=== PATIENT | female | born 1990 | race Two or more races ===

== ENCOUNTER 2016-11-05 14:05 | Emergency (ER) | payer SELFPAY ==
[2016-11-05] MEDS ORDERED: NORMAL SALINE 1000 ML 1,000 ML IV PRN (14:24)
[2016-11-05 14:47] LABS: ABSOLUTE BASOPHILS # (AUTO) 0.1 10^3/uL (0.0-0.2); ABSOLUTE EOSINOPHILS # (AUTO) 0.1 10^3/uL (0.0-0.6); ABSOLUTE LYMPHOCYTES (AUTO) 1.6 10^3/uL (0.5-4.7); ABSOLUTE MONOCYTES (AUTO) 0.6 10^3/uL (0.1-1.4); ABSOLUTE NEUT (AUTO) 9.1 10^3/uL (1.7-8.2); BASOPHILS % (AUTO) 0.6 % (0-2); EOSINOPHILS % (AUTO) 0.8 % (0-6); HEMATOCRIT 35.9 % (36.0-47.0); HEMOGLOBIN 11.2 g/dL (12.0-15.5); HGB HCT DIFFERENCE -2.3; MEAN CORPUSCULAR HEMOGLOBIN 25.9 pg (27.0-33.4); MEAN CORPUSCULAR HGB CONC 31.1 g/dL (32.0-36.0); MEAN CORPUSCULAR VOLUME 83 fl (80-97); MONOCYTES % (AUTO) 5.4 % (3-13); RED BLOOD COUNT 4.32 10^6/uL (3.72-5.28); RED CELL DISTRIBUTION WIDTH 14.8 % (11.5-14.0); SEGMENTED NEUTROPHILS % (AUTO) 79.2 % (42-78); WHITE BLOOD COUNT 11.5 10^3/uL (4.0-10.5)
[2016-11-05 14:52] LABS: ALANINE AMINOTRANSFERASE 19 U/L (9-52); ALBUMIN 3.8 g/dL (3.5-5.0); ALKALINE PHOSPHATASE 89 U/L (38-126); ANION GAP 19 (5-19); ASPARTATE AMINO TRANSFERASE 28 U/L (14-36); BILIRUBIN,TOTAL 0.5 mg/dL (0.2-1.3); BLOOD UREA NITROGEN 17 mg/dL (7-20); CALCIUM 8.8 mg/dL (8.4-10.2); CARBON DIOXIDE 17 mmol/L (22-30); CHLORIDE 103 mmol/L (98-107); CREATININE RESULT 0.78 mg/dL (0.52-1.25); GLUCOSE 230 mg/dL (75-110); POTASSIUM 3.9 mmol/L (3.6-5.0); SODIUM 139.1 mmol/L (137-145); TOTAL PROTEIN 6.7 g/dL (6.3-8.2)
--- NOTE | 2016-11-05 15:05 | ER Document Report ---
ED General - General Chief Complaint: High Blood Sugar Stated Complaint: BLOOD SUGAR PROBLEM Time seen by provider: 14:00 Mode of Arrival: Medic Information source: Patient Notes: 26-year-old female who states she felt very weak as if she would pass out shortly prior to arrival. Patient reports history of diabetes and says she takes insulin twice a day but doesn't routinely check her blood sugars. She says that when she starts to develop polyuria she may give herself some extra insulin and she feels as if her blood sugar might be low she may eat or drink something extra. The patient says that she felt nauseated this morning and weak and drank a Sprite some point this morning she also found her blood sugar to be too high to reading the rest of extra insulin but she doesn't recall this came before or after drinking a Sprite. Patient reports receiving 1 L of IV fluids from EMS personnel in route. He says she feels better now but still somewhat weak. She denies recent fever, chills, cough, vomiting, diarrhea, chest pain, abdominal pain, back pain, dysuria, earache, sore throat, headache, or other symptoms. Patient reports that she has previously seen Dr. Martin of endocrinology but had to stop after she lost her insurance. Physical Exam: General: Alert, appears well. HEENT: Normocephalic. Atraumatic. PERRLA. Extraocular movements intact. Oropharynx clear. Tympanic membranes and canals clear Neck: Supple. Non-tender. No JVD Respiratory: No respiratory distress. Clear and equal breath sounds bilaterally. Cardiovascular: Regular rate and rhythm. Abdominal: Normal Inspection. Soft, non-tender. No distension. Normal Bowel Sounds. Back: Non-tender. No deformity or step off. Extremities: Moves all four extremities. Upper extremities: Normal inspection. Non-tender. Normal color. Normal ROM. Normal temperature. Lower extremities: Normal inspection. Non-tender. No edema. Normal color. Normal ROM. Normal temperature. 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 Normal Mood. Skin: Warm. Dry. Normal color. TRAVEL OUTSIDE OF THE [place] IN LAST 30 DAYS: No - Related Data Allergies/Adverse Reactions: No Known Allergies Allergy (Unverified 11/14/12 11:44) Past Medical History - Social History Smoking Status: Former Smoker Family History: DM Pulmonary Medical History: Denies: Hx Tuberculosis Endocrine Medical History: Reports: Hx Diabetes Mellitus Type 1 Past Surgical History: Denies: Hx Pacemaker - Immunizations Immunizations up to date: No Hx Diphtheria, Pertussis, Tetanus Vaccination: No Review of Systems - Review of Systems Constitutional: denies: Chills, Fever EENT: denies: Ear pain, Throat pain Cardiovascular: denies: Chest pain Respiratory: denies: Cough, Short of breath Gastrointestinal: denies: Abdominal pain Genitourinary: denies: Burning, Dysuria Female Genitourinary: Last menstrual period - Now Musculoskeletal: denies: Back pain Skin: denies: Rash Hematologic/Lymphatic: denies: Swollen glands Neurological/Psychological: denies: Weakness, Numbness Physical Exam - Vital signs Vitals: Temp BP 97.8 F 114/66 11/05/16 14:15 11/05/16 14:15 Course - Re-evaluation Re-evalutation: 11/05/16 15:41 Patient has ambulated in department without difficulty she's remained hemodynamically stable and asymptomatic here. Laboratory workup does show hyperglycemia but she is not acidotic. 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 Martin that I recognize insurance issues have been a problem for her. 11/05/16 15:55 Patient does have an UTI will be placed on Keflex 500 4 times a day for 10 days over this will also improve management of her blood sugars - Vital Signs Vital signs: Temp Pulse Resp BP Pulse Ox 97.8 F 114/66 11/05/16 14:15 11/05/16 14:15 - Laboratory Result Diagrams: 11/05/16 14:15 11/05/16 14:15 Laboratory results interpreted by me: 11/05/16 11/05/16 11/05/16 14:14 14:15 14:15 WBC 11.5 H Hgb 11.2 L Hct 35.9 L MCH 25.9 L MCHC 31.1 L RDW 14.8 H Seg Neutrophils % 79.2 H Absolute Neutrophils 9.1 H Carbonic Acid ABG pH ABG pCO2 ABG pO2 ABG HCO3 ABG Total CO2 ABG O2 Saturation Carbon Dioxide 17 L Glucose 230 H POC Glucose 243 H Lipase 22.0 L Urine Protein Urine Glucose (UA) Urine Ketones Urine Blood Ur Leukocyte Esterase 11/05/16 11/05/16 15:01 15:22 WBC Hgb Hct MCH MCHC RDW Seg Neutrophils % Absolute Neutrophils Carbonic Acid 0.79 L ABG pH 7.50 H ABG pCO2 26.1 L ABG pO2 130.0 H ABG HCO3 19.9 L ABG Total CO2 20.7 L ABG O2 Saturation 98.9 H Carbon Dioxide Glucose POC Glucose Lipase Urine Protein 100 H Urine Glucose (UA) >=500 H Urine Ketones TRACE H Urine Blood SMALL H Ur Leukocyte Esterase MODERATE H - Diagnostic Test Radiology reviewed: Image reviewed, Reports reviewed Discharge - Discharge Clinical Impression: Hyperglycemia due to type 1 diabetes mellitus UTI (urinary tract infection) Qualifiers: Urinary tract infection type: acute cystitis Hematuria presence: without hematuria Qualified Code(s): N30.00 - Acute cystitis without hematuria Condition: Stable Disposition: HOME, SELF-CARE Instructions: Urinary Tract Infection ([facility]) Additional Instructions: Diabetes You have an abnormally high blood sugar, suspicious for diabetes. Not all high blood sugar requires long-term treatment. High blood sugar can be due to medications, , or the stress of illness. (These cases are "borderline diabetes.") If the doctor feels your high blood sugar might get better with time, you may not require treatment now. You will be scheduled for further evaluation. It's very important that you follow through. Uncontrolled high blood sugar leads to early heart disease , strokes, nerve damage, eye damage, and kidney damage. All diabetics should follow a diet designed to control the blood sugar. Overweight diabetics should exercise regularly and lose weight. If this is not sufficient to control the blood sugar, pills or insulin shots are necessary. Younger people who develop diabetes almost always require insulin daily. Home testing of blood sugars or urine sugar is required. Diabetic teaching is available to help you figure insulin doses and monitor the blood sugar. Call the physician if there is faintness, excess sleepiness, or very rapid breathing. If hypoglycemia (LOW blood sugar) develops, symptoms are shakiness, weakness, sweating, and confusion. In this case, you should eat or drink something with sugar at once. Prescriptions: Cephalexin Monohydrate [Keflex 500 mg Capsule] 500 mg PO QID #40 capsule Referrals: JHONNY LUCAS MD [ACTIVE STAFF] - Follow up in 3-5 days
[2016-11-05 15:18] LABS: ARTERIAL BLOOD BASE EXCESS -1.9 mmol/L; ARTERIAL BLOOD O2 SATURATION 98.9 % (94-98)
[2016-11-05 15:38] LABS: APPEARANCE,URINE SLIGHTLY-CLOUDY; BILIRUBIN,URINE NEGATIVE (NEGATIVE); GLUCOSE, URINE >=500 mg/dL (NEGATIVE); KETONES,URINE TRACE mg/dL (NEGATIVE); LEUKOCYTE ESTERASE,URINE MODERATE (NEGATIVE); NITRITE,URINE NEGATIVE (NEGATIVE); PROTEIN,URINE 100 mg/dL (NEGATIVE); URINE SPECIFIC GRAVITY 1.016; UROBILINOGEN,URINE NEGATIVE mg/dL (<2.0)
[2016-11-05 16:38] VITALS: BP 113/62
== END 2016-11-05 16:38 | disposition home or self-care (01) ==
LOC: ER 14:05
DX: E10.65 Type 1 diabetes mellitus with hyperglycemia (principal); N30.00 Acute cystitis without hematuria
CPT/HCPCS: 99284; 96360; 36415; 87086; 82962; 82803; 83690; 85025; 81025; 87088; 80053; 81001; 71010; 36600; J7030

== ENCOUNTER 2017-05-23 10:55 | Emergency (ER) | payer SELFPAY ==
[2017-05-23] MEDS ORDERED: METOCLOPRAMIDE HCL 10 MG TABLET PO ONE (11:20)
[2017-05-23] MEDS ORDERED: ACETAMINOPHEN 325 MG TABLET PO ONE (11:21)
--- NOTE | 2017-05-23 11:22 | ER Document Report ---
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 She does report a headache. She denies fever, chills or abdominal pain. She denies diarrhea. TRAVEL OUTSIDE OF THE [place] IN LAST 30 DAYS: No - Related Data Allergies/Adverse Reactions: No Known Allergies Allergy (Verified 05/23/17 11:05) Past Medical History - Social History Chew tobacco use (# tins/day): No Frequency of alcohol use: Rare Drug Abuse: None Pulmonary Medical History: Denies: Hx Tuberculosis Endocrine Medical History: Reports: Hx Diabetes Mellitus Type 1 Renal/ Medical History: Denies: Hx Peritoneal Dialysis Past Surgical History: Denies: Hx Pacemaker - Immunizations Immunizations up to date: No Hx Diphtheria, Pertussis, Tetanus Vaccination: No Physical Exam - Vital signs Vitals: Temp Pulse Resp BP Pulse Ox 98.6 F 92 16 130/74 H 100 05/23/17 11:04 05/23/17 11:04 05/23/17 11:04 05/23/17 11:04 05/23/17 11:04 Course - Vital Signs Vital signs: Temp Pulse Resp BP Pulse Ox 98.6 F 92 14 130/74 H 100 05/23/17 11:04 05/23/17 11:04 05/23/17 11:17 05/23/17 11:04 05/23/17 11:04
[2017-05-23 11:47] LABS: ABSOLUTE BASOPHILS # (AUTO) 0.1 10^3/uL (0.0-0.2); ABSOLUTE EOSINOPHILS # (AUTO) 0.2 10^3/uL (0.0-0.6); ABSOLUTE LYMPHOCYTES (AUTO) 1.3 10^3/uL (0.5-4.7); ABSOLUTE MONOCYTES (AUTO) 0.4 10^3/uL (0.1-1.4); BASOPHILS % (AUTO) 0.8 % (0-2); EOSINOPHILS % (AUTO) 2.5 % (0-6); HEMATOCRIT 37.4 % (36.0-47.0); HEMOGLOBIN 12.4 g/dL (12.0-15.5); HGB HCT DIFFERENCE -0.2; LYMPHOCYTES % (AUTO) 18.9 % (13-45); MEAN CORPUSCULAR HEMOGLOBIN 26.1 pg (27.0-33.4); MEAN CORPUSCULAR HGB CONC 33.2 g/dL (32.0-36.0); MEAN CORPUSCULAR VOLUME 79 fl (80-97); MONOCYTES % (AUTO) 5.7 % (3-13); RED BLOOD COUNT 4.75 10^6/uL (3.72-5.28); RED CELL DISTRIBUTION WIDTH 14.1 % (11.5-14.0); SEGMENTED NEUTROPHILS % (AUTO) 72.1 % (42-78); WHITE BLOOD COUNT 6.9 10^3/uL (4.0-10.5)
[2017-05-23 12:00] LABS: ALANINE AMINOTRANSFERASE 21 U/L (9-52); ALBUMIN 4.2 g/dL (3.5-5.0); ALKALINE PHOSPHATASE 76 U/L (38-126); ANION GAP 10 (5-19); ASPARTATE AMINO TRANSFERASE 20 U/L (14-36); BILIRUBIN,DIRECT 0.2 mg/dL (0.0-0.4); BILIRUBIN,TOTAL 0.4 mg/dL (0.2-1.3); BLOOD UREA NITROGEN 17 mg/dL (7-20); CALCIUM 8.9 mg/dL (8.4-10.2); CARBON DIOXIDE 26 mmol/L (22-30); CHLORIDE 105 mmol/L (98-107); CREATININE RESULT 0.79 mg/dL (0.52-1.25); GLUCOSE 181 mg/dL (75-110); POTASSIUM 3.8 mmol/L (3.6-5.0); SODIUM 140.8 mmol/L (137-145); TOTAL PROTEIN 7.6 g/dL (6.3-8.2)
[2017-05-23 12:15] LABS: APPEARANCE,URINE SLIGHTLY-CLOUDY; BILIRUBIN,URINE NEGATIVE (NEGATIVE); GLUCOSE, URINE 500 mg/dL (NEGATIVE); KETONES,URINE NEGATIVE (NEGATIVE)
[2017-05-23 12:16] LABS: BACTERIA,URINE TRACE /HPF; LEUKOCYTE ESTERASE,URINE NEGATIVE (NEGATIVE); NITRITE,URINE NEGATIVE (NEGATIVE); PROTEIN,URINE 100 mg/dL (NEGATIVE); RBC,URINE TOO NUMEROUS TO CNT /HPF; URINE SPECIFIC GRAVITY 1.035; UROBILINOGEN,URINE NEGATIVE mg/dL (<2.0)
[2017-05-23 12:35] VITALS: BP 111/59
--- NOTE | 2017-05-23 12:35 | ER Document Report ---
ED General - General Chief Complaint: Nausea/Vomiting Stated Complaint: NAUSEA/VOMITING Time Seen by Provider: 05/23/17 11:19 Mode of Arrival: Ambulatory TRAVEL OUTSIDE OF THE [place] IN LAST 30 DAYS: No - HPI Patient complains to provider of: Nausea vomiting Notes: Patient coming in with 3 day history of nausea vomiting. Patient states recently diagnosed diabetes has been compliant with her medications. Patient is unaware of her status. Patient denies any recent travel denies any sick contacts denies any trauma. Denies fevers chills diarrhea. - Related Data Allergies/Adverse Reactions: No Known Allergies Allergy (Verified 05/23/17 11:05) Past Medical History - General Information source: Patient - Social History Smoking Status: Current Every Day Smoker Chew tobacco use (# tins/day): No Frequency of alcohol use: Rare Drug Abuse: None Family History: DM Pulmonary Medical History: Denies: Hx Tuberculosis Endocrine Medical History: Reports: Hx Diabetes Mellitus Type 1 Renal/ Medical History: Denies: Hx Peritoneal Dialysis Past Surgical History: Denies: Hx Pacemaker - Immunizations Immunizations up to date: No Hx Diphtheria, Pertussis, Tetanus Vaccination: No Review of Systems - Review of Systems Constitutional: No symptoms reported EENT: No symptoms reported Cardiovascular: No symptoms reported Respiratory: No symptoms reported Gastrointestinal: Nausea, Vomiting Genitourinary: No symptoms reported Female Genitourinary: No symptoms reported Musculoskeletal: No symptoms reported Skin: No symptoms reported Hematologic/Lymphatic: No symptoms reported Neurological/Psychological: No symptoms reported -: Yes All other systems reviewed and negative Physical Exam - Vital signs Vitals: Temp Pulse Resp BP Pulse Ox 98.6 F 92 16 130/74 H 100 05/23/17 11:04 05/23/17 11:04 05/23/17 11:04 05/23/17 11:04 05/23/17 11:04 Interpretation: Normal - General General appearance: Appears well, Alert - HEENT Head: Normocephalic, Atraumatic Eyes: Normal Pupils: PERRL - Respiratory Respiratory status: No respiratory distress Chest status: Nontender Breath sounds: Normal Chest palpation: Normal - Cardiovascular Rhythm: Regular Heart sounds: Normal auscultation Murmur: No - Abdominal Inspection: Normal Distension: No distension Bowel sounds: Normal Tenderness: Nontender Organomegaly: No organomegaly - Back Back: Normal, Nontender - Extremities General upper extremity: Normal inspection, Nontender, Normal color, Normal ROM , Normal temperature General lower extremity: Normal inspection, Nontender, Normal color, Normal ROM , Normal temperature, Normal weight bearing. No: Marvin's sign - Neurological Neuro grossly intact: Yes Cognition: Normal Orientation: AAOx4 [place] Coma Scale Eye Opening: Spontaneous [place] Coma Scale Verbal: Oriented [place] Coma Scale Motor: Obeys Commands [place] Coma Scale Total: 15 Speech: Normal Motor strength normal: LUE, RUE, LLE, RLE Sensory: Normal - Psychological Associated symptoms: Normal affect, Normal mood - Skin Skin Temperature: Warm Skin Moisture: Dry Skin Color: Normal Course - Re-evaluation Re-evalutation: 05/23/17 15:38 The patient presents with nausea vomiting without signs of peritonitis or other life-threatening or serious etiology. The patient appears stable for discharge and has been instructed to return immediately if the symptoms worsen in any way , or in 8-12hr if not improved for re-evaluation. The patient has been instructed to return if the symptoms worsen or change in any way. Better with Reglan will discharge - Vital Signs Vital signs: Temp Pulse Resp BP Pulse Ox 98.3 F 79 17 111/59 L 95 05/23/17 12:33 05/23/17 12:33 05/23/17 12:33 05/23/17 12:33 05/23/17 12:33 - Laboratory Result Diagrams: 05/23/17 11:25 05/23/17 11:25 Laboratory results interpreted by me: 05/23/17 05/23/17 05/23/17 11:25 11:25 11:25 MCV 79 L MCH 26.1 L RDW 14.1 H Glucose 181 H Urine Protein 100 H Urine Glucose (UA) 500 H Urine Blood LARGE H Discharge - Discharge Clinical Impression: Nausea & vomiting Qualifiers: Vomiting type: unspecified Vomiting Intractability: unspecified Qualified Code( s): R11.2 - Nausea with vomiting, unspecified Condition: Good Disposition: HOME, SELF-CARE Instructions: Vomiting ([facility]), Reglan ([facility]) Additional Instructions: Please follow-up with your physician. Return to the ER symptoms worsen. Take medication as prescribed. Prescriptions: Metoclopramide HCl [Reglan] 5 mg PO Q6 #30 tablet Forms: Return to Work
== END 2017-05-23 12:38 | disposition home or self-care (01) ==
LOC: ER 10:55
DX: R11.2 Nausea with vomiting, unspecified (principal); E10.9 Type 1 diabetes mellitus without complications; F17.200 Nicotine dependence, unspecified, uncomplicated
CPT/HCPCS: 36415; 80053; 81001; 84702; 85025; 99283

== ENCOUNTER 2017-06-01 16:37 | Emergency (ER) | payer SELFPAY ==
[2017-06-01] MEDS ORDERED: ONDANSETRON HCL INJ/PF 4 MG/2 ML SDV IV ONE (17:15)
[2017-06-01] MEDS ORDERED: NORMAL SALINE 1000 ML 1,000 ML IV ONE ×2 (17:15→18:32)
--- NOTE | 2017-06-01 17:16 | ER Document Report ---
HPI - HPI Patient complains to provider of: Nausea, vomiting diarrhea Onset: Yesterday Onset/Duration: Gradual Quality of pain: Achy Pain Level: 2 Context: Patient presents complaining of nausea, vomiting and diarrhea that started yesterday. Patient states she vomited about 6 times today and had diarrhea 4. Patient states that her ribs hurt from vomiting. Patient denies any fever or urinary symptoms. Patient does complain of some headache pain. Associated Symptoms: Diarrhea, Headache, Nausea, Vomiting. denies: Chills, Nonproductive cough, Productive cough, Fever Exacerbated by: Denies Relieved by: Denies Similar symptoms previously: No Recently seen / treated by doctor: No - ROS ROS below otherwise negative: Yes Systems Reviewed and Negative: Yes All other systems reviewed and negative - CONSTITUTIONAL Constitutional: DENIES: Fever - NEURO Neurology: REPORTS: Headache. DENIES: Weakness - RESPIRATORY Respiratory: DENIES: Coughing - GASTROINTESTINAL Gastrointestinal: REPORTS: Nausea, Patient vomiting, Diarrhea. DENIES: Abdominal Pain, Black / Bloody Stools - URINARY Urinary: DENIES: Dysuria, Urgency - REPRODUCTIVE LMP: 05/26/17 Reproductive: DENIES: : - MUSCULOSKELETAL Musculoskeletal: DENIES: Back Pain - DERM Skin Color: Normal Skin Problems: None Past Medical History - General Information source: Patient - Social History Smoking Status: Current Every Day Smoker Frequency of alcohol use: None Drug Abuse: None Occupation: [employer] Family History: DM - Medical History Notes: Reviewed patient's medication list Pulmonary Medical History: Denies: Hx Tuberculosis Endocrine Medical History: Reports: Hx Diabetes Mellitus Type 1 Renal/ Medical History: Denies: Hx Peritoneal Dialysis Surgical Hx: Negative - Immunizations Immunizations up to date: No Hx Diphtheria, Pertussis, Tetanus Vaccination: No Vertical Provider Document - CONSTITUTIONAL Agree With Documented VS: Yes Exam Limitations: No Limitations General Appearance: WD/WN, No Apparent Distress - INFECTION CONTROL TRAVEL OUTSIDE OF THE [place] IN LAST 30 DAYS: No - HEENT HEENT: Atraumatic. negative: Pharyngeal Exudate, Pharyngeal Tenderness, Pharyngeal Erythema Notes: dry cracked lips - NECK Neck: Normal Inspection, Supple. negative: Lymphadenopathy-Left, Lymphadenopathy-Right - RESPIRATORY Respiratory: Breath Sounds Normal, No Respiratory Distress, Chest Non-Tender O2 Sat by Pulse Oximetry: 98 - CARDIOVASCULAR Cardiovascular: Regular Rate, Regular Rhythm, No Murmur - GI/ABDOMEN Gastrointestinal: Abdomen Soft, Abdomen Non-Tender - BACK Back: Normal Inspection. negative: CVA Tenderness-Right, CVA Tenderness-Left - MUSCULOSKELETAL/EXTREMETIES Musculoskeletal/Extremeties: MAEW, FROM, Non-Tender - NEURO Level of Consciousness: Awake, Alert, Appropriate Motor/Sensory: No Motor Deficit - DERM Integumentary: Warm, Dry Course - Re-evaluation Re-evalutation: 06/01/17 18:40 Patient denies any nausea or vomiting during ER stay. Patient denies any abdominal tenderness at this time. 06/01/17 19:40 Bedside report and handout given to Donna LONG - Vital Signs Vital signs: Temp Pulse Resp BP Pulse Ox 98.7 F 89 16 119/69 98 06/01/17 16:45 06/01/17 16:45 06/01/17 16:45 06/01/17 16:45 06/01/17 16:45 - Laboratory Result Diagrams: 06/01/17 17:25 06/01/17 17:25 Laboratory results interpreted by me: 06/01/17 18:40 Labs- Entire Visit 06/01/17 06/01/17 06/01/17 17:25 17:25 17:25 WBC 5.6 RBC 5.15 Hgb 13.1 Hct 40.5 MCV 79 L MCH 25.5 L MCHC 32.5 RDW 14.7 H Plt Count 248 Seg Neutrophils % 70.0 Lymphocytes % 19.6 Monocytes % 8.8 Eosinophils % 1.2 Basophils % 0.4 Absolute Neutrophils 3.9 Absolute Lymphocytes 1.1 Absolute Monocytes 0.5 Absolute Eosinophils 0.1 Absolute Basophils 0.0 Sodium 137.5 Potassium 3.8 Chloride 101 Carbon Dioxide 24 Anion Gap 13 BUN 20 Creatinine 0.68 Est GFR ( Amer) > 60 Est GFR (Non-Af Amer) > 60 Glucose 127 H Calcium 9.4 Total Bilirubin 0.6 Direct Bilirubin 0.3 Indirect Bilirubin Not Reportable Neonat Total Bilirubin Not Reportable AST 21 ALT 26 Alkaline Phosphatase 75 Total Protein 7.5 Albumin 4.1 Lipase 21.4 L Serum HCG, Qual NEGATIVE Urine Color Urine Appearance Urine pH Ur Specific [place] Urine Protein Urine Glucose (UA) Urine Ketones Urine Blood Urine Nitrite Urine Bilirubin Urine Urobilinogen Ur Leukocyte Esterase Urine WBC (Auto) Urine RBC (Auto) Squamous Epi Cells Auto Urine Mucus (Auto) Urine Ascorbic Acid 06/01/17 18:14 WBC RBC Hgb Hct MCV MCH MCHC RDW Plt Count Seg Neutrophils % Lymphocytes % Monocytes % Eosinophils % Basophils % Absolute Neutrophils Absolute Lymphocytes Absolute Monocytes Absolute Eosinophils Absolute Basophils Sodium Potassium Chloride Carbon Dioxide Anion Gap BUN Creatinine Est GFR ( Amer) Est GFR (Non-Af Amer) Glucose Calcium Total Bilirubin Direct Bilirubin Indirect Bilirubin Neonat Total Bilirubin AST ALT Alkaline Phosphatase Total Protein Albumin Lipase Serum HCG, Qual Urine Color DARK YELLOW Urine Appearance SLIGHTLY-CLOUDY Urine pH 5.0 Ur Specific [place] 1.039 Urine Protein 100 H Urine Glucose (UA) NEGATIVE Urine Ketones 80 H Urine Blood NEGATIVE Urine Nitrite NEGATIVE Urine Bilirubin NEGATIVE Urine Urobilinogen NEGATIVE Ur Leukocyte Esterase TRACE H Urine WBC (Auto) 9 Urine RBC (Auto) 1 Squamous Epi Cells Auto 10 Urine Mucus (Auto) MANY Urine Ascorbic Acid 20 H Discharge - Discharge Clinical Impression: Nausea vomiting and diarrhea, Dehydration Condition: Stable Disposition: HOME, SELF-CARE Additional Instructions: Return immediately for any new or worsening symptoms Followup with your primary care provider, call tomorrow to make a followup appointment Increase oral fluids VOMITING: Vomiting (or nausea without vomiting) can be caused by many other different problems. It can mean that something's wrong with the stomach, such as ulcers or inflammation or the intestinal tract, such as appendicitis. But it can also be a symptom of a problem that has nothing to do with the stomach or intestines. Vomiting is common with severe headaches, earaches, tonsillitis, and kidney infections, etc. We see it with pneumonia or heart attacks. Drugs can cause nausea and vomiting. Many abdominal problems cause vomiting; for example, gallstones, kidney stones, pancreatitis, and intestinal obstruction ( blocked bowels). In most cases, curing the vomiting depends on fixing the problem that caused it. For temporary relief, we may use an anti-nausea medicine. For home use, we can prescribe suppositories, chewable pills, pills that dissolve in the mouth, or liquid anti-nausea drugs. If the vomiting seems to be caused by a problem in the stomach, acid-suppressing drugs may be prescribed as well. It's important to avoid dehydration. Sip small amounts of clear liquids ( soft drinks, tea, broth, etc) . Try to take fluids frequently even if you are vomiting to prevent dehydration. Take increasing amounts of fluid and when liquids are being consumed successfully, advance to small amounts of bland food (toast, soups, mashed potatoes, etc.) until you are able to resume a regular diet. Avoid aspirin, tobacco, and alcohol. If the vomiting worsens, if the problem that's making you vomit worsens, or if there's evidence of bleeding in the stomach (such as black, tarry stool, or bloody or black vomit), you should return immediately. Also, return if abdominal pain worsens or becomes localized to one area or you develop high fever. Call your doctor if you aren't improved in 24 hours. DIARRHEA, NON-SPECIFIC: Diarrhea means frequent, watery stools. There are many causes. Any problem that keeps the intestinal tract from absorbing water from the stool can lead to diarrhea. A sudden new diarrhea problem is usually caused by a virus, food sensitivity, toxic bacteria, or drugs. In this case, we expect the problem to go away soon. Testing is done only if you seem seriously ill from the diarrhea. If you have chronic diarrhea, or diarrhea that keeps coming back, we need to find out why. Chronic diarrhea can be due to inflammation of the bowels such as Crohn's disease or ulcerative colitis, food sensitivity such as intolerance to lactose or wheat protein, irritable bowel syndrome, and other problems. If your diarrhea is a significant problem but it's not clear why you have it, we' ll refer you to a specialist for further testing. During an episode of diarrhea, drink small amounts (two to six ounces) of clear liquids (soft drinks, sport drinks, herb teas, broth, etc). Take fluids frequently to prevent dehydration. It's usually not a problem to take mild anti- diarrhea medication such as Kaopectate or Pepto-Bismol. As the diarrhea eases, advance to small amounts of bland food (mashed potato, toast) for 24 hours. Call the physician if blood appears in your vomit or stool, if vomiting lasts longer than 24 hours, if the abdominal pain worsens or becomes localized to one area, if you develop high fever, or if you become lightheaded and weak. VIRAL SYNDROME: The physician has diagnosed a viral infection. Viruses not only cause "colds," but can cause many different symptoms including generalized aching, fever, headache, cough, diarrhea, nausea, vomiting, and fatigue. The treatment, for the most part, is simply relief of symptoms. This means that antibiotics are usually not given. Rest, fluids, pain medications and, occasionally, medication for the specific symptoms that are most bothersome will be prescribed. Use good handwashing to avoid passing the virus to others. Shared toys should be cleaned with disinfectant. Clean the toilets, sinks, and counter surfaces in bathrooms. Launder clothing in hot water. Contact the physician if you develop any new or unusual symptoms such as severe headache, stiff neck, high fever, chest pain, productive cough, or shortness of breath. You should be rechecked if you don't see marked improvement within seven to 10 days. INTRAVENOUS (I V) FLUIDS: As part of your care today, you received intravenous (IV) fluids. IV fluids are administered to patients who are dehydrated or to those who have certain chemical (electrolyte) abnormalities that need correcting. ANTINAUSEA MEDICATION: You have been given a medication to suppress nausea and vomiting. This type of medication can be given as a shot, pill, or suppository. It will usually last for many hours. Pills and shots usually last six to eight hours. For the typical illness, only one or two doses of the medication may be necessary. Mild lightheadedness may occur. This type of medicine can cause drowsiness. Do not drive or operate dangerous machinery while under its influence. Do not mix with alcohol. See your doctor at once if you have muscle spasms or tightness, or uncontrollable motions (particularly of the neck, mouth, or jaw). Persistent vomiting or severe lightheadedness should also be evaluated by the physician. FOLLOW-UP CARE: If you have been referred to a physician for follow-up care, call the physician s office for an appointment as you were instructed or within the next two days. If you experience worsening or a significant change in your symptoms, notify the physician immediately or return to the Emergency Department at any time for re-evaluation. Prescriptions: Ondansetron HCl [Zofran 4 mg Tablet] 1 - 2 tab PO Q6 PRN #15 tablet PRN Reason: Forms: Return to Work Referrals: [facility] [Provider Group] - Follow up as needed
[2017-06-01 17:36] LABS: ABSOLUTE EOSINOPHILS # (AUTO) 0.1 10^3/uL (0.0-0.6); ABSOLUTE LYMPHOCYTES (AUTO) 1.1 10^3/uL (0.5-4.7); ABSOLUTE MONOCYTES (AUTO) 0.5 10^3/uL (0.1-1.4); ABSOLUTE NEUT (AUTO) 3.9 10^3/uL (1.7-8.2); BASOPHILS % (AUTO) 0.4 % (0-2); EOSINOPHILS % (AUTO) 1.2 % (0-6); HEMATOCRIT 40.5 % (36.0-47.0); HEMOGLOBIN 13.1 g/dL (12.0-15.5); HGB HCT DIFFERENCE -1.2; LYMPHOCYTES % (AUTO) 19.6 % (13-45); MEAN CORPUSCULAR HEMOGLOBIN 25.5 pg (27.0-33.4); MEAN CORPUSCULAR HGB CONC 32.5 g/dL (32.0-36.0); MEAN CORPUSCULAR VOLUME 79 fl (80-97); MONOCYTES % (AUTO) 8.8 % (3-13); RED BLOOD COUNT 5.15 10^6/uL (3.72-5.28); RED CELL DISTRIBUTION WIDTH 14.7 % (11.5-14.0); WHITE BLOOD COUNT 5.6 10^3/uL (4.0-10.5)
[2017-06-01 17:53] LABS: ALANINE AMINOTRANSFERASE 26 U/L (9-52); ALBUMIN 4.1 g/dL (3.5-5.0); ALKALINE PHOSPHATASE 75 U/L (38-126); ANION GAP 13 (5-19); ASPARTATE AMINO TRANSFERASE 21 U/L (14-36); BILIRUBIN,DIRECT 0.3 mg/dL (0.0-0.4); BILIRUBIN,TOTAL 0.6 mg/dL (0.2-1.3); BLOOD UREA NITROGEN 20 mg/dL (7-20); CALCIUM 9.4 mg/dL (8.4-10.2); CARBON DIOXIDE 24 mmol/L (22-30); CHLORIDE 101 mmol/L (98-107); CREATININE RESULT 0.68 mg/dL (0.52-1.25); GLUCOSE 127 mg/dL (75-110); LIPASE 21.4 U/L (23-300); POTASSIUM 3.8 mmol/L (3.6-5.0); SODIUM 137.5 mmol/L (137-145); TOTAL PROTEIN 7.5 g/dL (6.3-8.2)
[2017-06-01 18:31] LABS: APPEARANCE,URINE SLIGHTLY-CLOUDY; BILIRUBIN,URINE NEGATIVE (NEGATIVE); GLUCOSE, URINE NEGATIVE (NEGATIVE); KETONES,URINE 80 mg/dL (NEGATIVE); LEUKOCYTE ESTERASE,URINE TRACE (NEGATIVE); NITRITE,URINE NEGATIVE (NEGATIVE); PROTEIN,URINE 100 mg/dL (NEGATIVE); URINE SPECIFIC GRAVITY 1.039; UROBILINOGEN,URINE NEGATIVE mg/dL (<2.0)
[2017-06-01] MEDS ORDERED: DIPHENHYDRAMINE HCL 50 MG/ML VIAL IV ONE (19:39)
[2017-06-01] MEDS ORDERED: METOCLOPRAMIDE HCL INJ/PF 10 MG/2 ML SDV IV ONE (19:40)
[2017-06-01 21:58] VITALS: BP 106/61
== END 2017-06-01 21:56 | disposition home or self-care (01) ==
LOC: ER 16:37
DX: R11.2 Nausea with vomiting, unspecified (principal); R19.7 Diarrhea, unspecified; E86.0 Dehydration; R51 Headache; R07.81 Pleurodynia; E10.9 Type 1 diabetes mellitus without complications; F17.200 Nicotine dependence, unspecified, uncomplicated
CPT/HCPCS: 99284; 96374; 96375; 36415; 83690; 84703; 85025; 80053; 81001; J2765; J2405; J7030

== ENCOUNTER 2017-07-18 06:14 | Emergency (ER) | payer SELFPAY ==
[2017-07-18 06:25] VITALS: BP 132/64
[2017-07-18 07:32] LABS: APPEARANCE,URINE SLIGHTLY-CLOUDY; BILIRUBIN,URINE NEGATIVE (NEGATIVE); GLUCOSE, URINE 50 mg/dL (NEGATIVE); KETONES,URINE NEGATIVE (NEGATIVE); LEUKOCYTE ESTERASE,URINE TRACE (NEGATIVE); NITRITE,URINE POSITIVE (NEGATIVE); PROTEIN,URINE 100 mg/dL (NEGATIVE); URINE SPECIFIC GRAVITY 1.016
--- NOTE | 2017-07-18 07:45 | ER Document Report ---
ED General - General Chief Complaint: Urinary Problem Stated Complaint: PAINFUL URINATION Time Seen by Provider: 07/18/17 06:30 Mode of Arrival: Ambulatory Information source: Patient Notes: 26-year-old female presents with complaints of burning on urination of 2 day duration. pt taking azo with minimal relief . Patient's last UTI was 5 years ago TRAVEL OUTSIDE OF THE [place] IN LAST 30 DAYS: No - HPI Onset: Other - 2 days Onset/Duration: Intermittent Quality of pain: Burning Severity: Mild Pain Level: 1 Exacerbated by: Other Relieved by: Denies Similar symptoms previously: No Recently seen / treated by doctor: No - Related Data Allergies/Adverse Reactions: No Known Allergies Allergy (Verified 05/23/17 11:05) Past Medical History - Social History Smoking Status: Never Smoker Cigarette use (# per day): No Chew tobacco use (# tins/day): No Smoking Education Provided: No Family History: DM Patient has suicidal ideation: No Patient has homicidal ideation: No Pulmonary Medical History: Denies: Hx Tuberculosis Endocrine Medical History: Reports: Hx Diabetes Mellitus Type 1 Renal/ Medical History: Denies: Hx Peritoneal Dialysis Past Surgical History: Denies: Hx Pacemaker - Immunizations Immunizations up to date: No Hx Diphtheria, Pertussis, Tetanus Vaccination: No Review of Systems - Review of Systems Notes: REVIEW OF SYSTEMS: CONSTITUTIONAL : Denies fever, chills, or sweats. Denies recent illness. EENT: Denies eye, ear, throat, or mouth pain or symptoms. Denies nasal or sinus congestion or discharge. Denies throat, tongue, or mouth swelling or difficulty swallowing. CARDIOVASCULAR: Denies chest pain. Denies palpitations or racing or irregular heart beat. Denies ankle edema. RESPIRATORY: Denies cough, cold, or chest congestion. Denies shortness of breath, difficulty breathing, or wheezing. GASTROINTESTINAL: Denies abdominal pain or distention. Denies nausea, vomiting , or diarrhea. Denies blood in vomitus, stools, or per rectum. Denies black, tarry stools. Denies constipation. GENITOURINARY: admits ot burning on urination FEMALE GENITOURINARY: Denies vaginal bleeding, heavy or abnormal periods, irregular periods. Denies vaginal discharge or odor. MUSCULOSKELETAL: Denies back or neck pain or stiffness. Denies joint pain or swelling. SKIN: Denies rash, lesions or sores. HEMATOLOGIC : Denies easy bruising or bleeding. LYMPHATIC: Denies swollen, enlarged glands. NEUROLOGICAL: Denies confusion or altered mental status. Denies passing out or loss of consciousness. Denies dizziness or lightheadedness. Denies headache. Denies weakness or paralysis or loss of use of either side. Denies problems with gait or speech. Denies sensory loss, numbness, or tingling. Denies seizures. PSYCHIATRIC: Denies anxiety or stress. Denies depression, suicidal ideation, or homicidal ideation. ALL OTHER SYSTEMS REVIEWED AND NEGATIVE. PHYSICAL EXAMINATION: GENERAL: Well-appearing, well-nourished and in no acute distress. HEAD: Atraumatic, normocephalic. EYES: Pupils equal round and reactive to light, extraocular movements intact, conjunctiva are normal. ENT: Nares patent, oropharynx clear without exudates. Moist mucous membranes. NECK: Normal range of motion, supple without lymphadenopathy LUNGS: Breath sounds clear to auscultation bilaterally and equal. No wheezes rales or rhonchi. HEART: Regular rate and rhythm without murmurs ABDOMEN: Soft, nontender, nondistended abdomen. No guarding, no rebound. No masses appreciated. Female : deferred Musculoskeletal: Normal range of motion, no pitting or edema. No cyanosis. NEUROLOGICAL: Cranial nerves grossly intact. Normal speech, normal gait. Normal sensory, motor exams PSYCH: Normal mood, normal affect. SKIN: Warm, Dry, normal turgor, no rashes or lesions noted. Dictation was performed using [employer] voice recognition software Physical Exam - Vital signs Vitals: Temp Pulse Resp BP Pulse Ox 98.4 F 82 18 132/64 H 98 07/18/17 06:22 07/18/17 06:22 07/18/17 06:22 07/18/17 06:22 07/18/17 06:22 Course - Re-evaluation Re-evalutation: 07/18/17 12:42 07/18/17 15:57 Patient was treated for her urinary tract infection otherwise she looks well is in no distress will be discharged home with antibiotics After performing a Medical Screening Examination, I estimate there is LOW risk for ACUTE APPENDICITIS, BOWEL OBSTRUCTION, ACUTE CHOLECYSTITIS, PERFORATED DIVERTICULITIS, INCARCERATED HERNIA, PANCREATITIS, PELVIC INFLAMMATORY DISEASE, PERFORATED ULCER, ECTOPIC , or TUBO-OVARIAN ABSCESS, thus I consider the discharge disposition reasonable. Also, there is no evidence or peritonitis , sepsis, or toxicity. I have reevaluated this patient multiple times and no significant life threatening changes are noted. The patient and I have discussed the diagnosis and risks, and we agree with discharging home with close follow-up with the understanding that symptoms and presentations can change. We also discussed returning to the Emergency Department immediately if new or worsening symptoms occur. We have discussed the symptoms which are most concerning (e.g., bloody stool, fever, changing or worsening pain, vomiting) that necessitate immediate return. - Vital Signs Vital signs: Temp Pulse Resp BP Pulse Ox 98.4 F 82 18 132/64 H 98 07/18/17 06:22 07/18/17 06:22 07/18/17 06:22 07/18/17 06:22 07/18/17 06:22 - Laboratory Laboratory results interpreted by me: 07/18/17 07:05 Urine Protein 100 H Urine Glucose (UA) 50 H Urine Blood MODERATE H Urine Nitrite POSITIVE H Urine Urobilinogen 4.0 H Ur Leukocyte Esterase TRACE H Discharge - Discharge Clinical Impression: UTI (urinary tract infection) Qualifiers: Urinary tract infection type: acute cystitis Hematuria presence: with hematuria Qualified Code(s): N30.01 - Acute cystitis with hematuria Condition: Stable Disposition: HOME, SELF-CARE Instructions: Urinary Tract Infection ([facility]) Additional Instructions: Follow up with your physician tomorrow for further care or return to the ED IMMEDIATELY if symptoms worsen or new concerns occur. If you cannot afford to follow up with your primary care physician a list of low cost clinics have been provided at the end of your discharge papers as well. Prescriptions: Cephalexin Monohydrate [Keflex 500 mg Capsule] 500 mg PO BID 7 Days capsule Phenazopyridine HCl [Pyridium 200 mg Tablet] 200 mg PO TID #9 tablet
== END 2017-07-18 07:55 | disposition home or self-care (01) ==
LOC: ER 06:14
DX: N30.01 Acute cystitis with hematuria (principal); E10.9 Type 1 diabetes mellitus without complications
CPT/HCPCS: 81001; 81025; 99283

== ENCOUNTER 2017-09-22 19:48 | Inpatient (IN) | payer SELFPAY ==
[2017-09-22] MEDS ORDERED: NORMAL SALINE 1000 ML 1,000 ML IV ONE (20:17)
--- NOTE | 2017-09-22 20:19 | ER Document Report ---
ED Medical Screen (RME) - General Chief Complaint: High Blood Sugar Stated Complaint: BLOOD SUGAR PROBLEMS Time Seen by Provider: 09/22/17 20:17 Notes: Patient was sent from urgent care with glucose greater than 600. Patient states she ran out of her long-acting insulin approximately 1 week ago. She states she has just been giving herself her short acting insulin when she has been feeling bad. She states she does not have a glucometer at home so she does not note her sugars have been running. She has had vomiting. No diarrhea. TRAVEL OUTSIDE OF THE [place] IN LAST 30 DAYS: No - Related Data Allergies/Adverse Reactions: No Known Allergies Allergy (Verified 09/22/17 19:50) Past Medical History Pulmonary Medical History: Denies: Hx Tuberculosis Endocrine Medical History: Reports: Hx Diabetes Mellitus Type 1 Renal/ Medical History: Denies: Hx Peritoneal Dialysis Past Surgical History: Denies: Hx Pacemaker - Immunizations Immunizations up to date: No Hx Diphtheria, Pertussis, Tetanus Vaccination: No Physical Exam - Vital signs Vitals: Pulse Resp BP 91 16 132/65 H 09/22/17 19:58 09/22/17 19:58 09/22/17 19:58 Course - Vital Signs Vital signs: Temp Pulse Resp BP Pulse Ox 91 16 132/65 H 09/22/17 19:58 09/22/17 19:58 09/22/17 19:58
[2017-09-22 21:22] LABS: ABSOLUTE BASOPHILS # (AUTO) 0.1 10^3/uL (0.0-0.2); ABSOLUTE EOSINOPHILS # (AUTO) 0.2 10^3/uL (0.0-0.6); ABSOLUTE LYMPHOCYTES (AUTO) 2.2 10^3/uL (0.5-4.7); ABSOLUTE MONOCYTES (AUTO) 0.5 10^3/uL (0.1-1.4); ABSOLUTE NEUT (AUTO) 5.1 10^3/uL (1.7-8.2); BASOPHILS % (AUTO) 0.9 % (0-2); EOSINOPHILS % (AUTO) 2.4 % (0-6); HEMATOCRIT 38.6 % (36.0-47.0); HEMOGLOBIN 13.2 g/dL (12.0-15.5); LYMPHOCYTES % (AUTO) 27.2 % (13-45); MEAN CORPUSCULAR HEMOGLOBIN 26.5 pg (27.0-33.4); MEAN CORPUSCULAR HGB CONC 34.3 g/dL (32.0-36.0); MEAN CORPUSCULAR VOLUME 77 fl (80-97); MONOCYTES % (AUTO) 6.6 % (3-13); RED BLOOD COUNT 4.98 10^6/uL (3.72-5.28); RED CELL DISTRIBUTION WIDTH 15.1 % (11.5-14.0); SEGMENTED NEUTROPHILS % (AUTO) 62.9 % (42-78); WHITE BLOOD COUNT 8.1 10^3/uL (4.0-10.5)
[2017-09-22 21:34] LABS: ALANINE AMINOTRANSFERASE 26 U/L (9-52); ALKALINE PHOSPHATASE 135 U/L (38-126); ANION GAP 15 (5-19); ASPARTATE AMINO TRANSFERASE 18 U/L (14-36); BILIRUBIN,DIRECT 0.4 mg/dL (0.0-0.4); BILIRUBIN,TOTAL 0.4 mg/dL (0.2-1.3); BLOOD UREA NITROGEN 13 mg/dL (7-20); CARBON DIOXIDE 15 mmol/L (22-30); CHLORIDE 103 mmol/L (98-107); GLUCOSE 342 mg/dL (75-110); POTASSIUM 4.1 mmol/L (3.6-5.0); SODIUM 132.9 mmol/L (137-145)
[2017-09-23] MEDS ORDERED: NORMAL SALINE 1000 ML 1,000 ML IV ONE ×2 (01:11→05:29)
[2017-09-23] MEDS ORDERED: INSULIN REG, HUMAN 100 UNIT/ML 3 ML VIAL (PYX) SUBCUT ONE (01:47)
[2017-09-23 01:49] LABS: APPEARANCE,URINE CLOUDY; BILIRUBIN,URINE NEGATIVE (NEGATIVE); GLUCOSE, URINE >=500 mg/dL (NEGATIVE); KETONES,URINE 80 mg/dL (NEGATIVE); LEUKOCYTE ESTERASE,URINE MODERATE (NEGATIVE); NITRITE,URINE NEGATIVE (NEGATIVE); PROTEIN,URINE 30 mg/dL (NEGATIVE); URINE SPECIFIC GRAVITY 1.033; UROBILINOGEN,URINE NEGATIVE mg/dL (<2.0)
[2017-09-23 02:13] LABS: RBC,URINE NONE SEEN /HPF
[2017-09-23 02:14] LABS: BACTERIA,URINE 3+ /HPF
--- NOTE | 2017-09-23 03:10 | ER Document Report ---
ED Blood Sugar Problem - General Chief Complaint: High Blood Sugar Stated Complaint: BLOOD SUGAR PROBLEMS Time Seen by Provider: 09/22/17 20:17 Notes: Patient is a 27-year-old female with type 1 diabetes comes emergency department for chief complaint of hyperglycemia. She states that she has vomited twice today as well. She was seen in urgent care and they sent her the emergency department. She states that she ran out of her long-acting insulin (tresiba) about 1 week ago. She normally takes 30 units nightly. She does still have her sliding scale insulin. She denies ever being admitted for DKA in the past. She states currently she does not feel nauseated. She states she is waiting for her insurance which starts next month before she has a primary care provider. TRAVEL OUTSIDE OF THE [place] IN LAST 30 DAYS: No - Related Data Allergies/Adverse Reactions: No Known Allergies Allergy (Verified 09/22/17 19:50) Past Medical History - General Information source: Patient - Social History Smoking Status: Never Smoker Frequency of alcohol use: None Drug Abuse: None Lives with: Alone Family History: DM Patient has suicidal ideation: No Patient has homicidal ideation: No Pulmonary Medical History: Denies: Hx Tuberculosis Endocrine Medical History: Reports: Hx Diabetes Mellitus Type 1 Renal/ Medical History: Denies: Hx Peritoneal Dialysis Surgical Hx: Negative Past Surgical History: Denies: Hx Pacemaker - Immunizations Immunizations up to date: No Hx Diphtheria, Pertussis, Tetanus Vaccination: Yes Review of Systems - Review of Systems Constitutional: No symptoms reported EENT: No symptoms reported Cardiovascular: No symptoms reported Respiratory: No symptoms reported Gastrointestinal: See HPI Genitourinary: No symptoms reported Female Genitourinary: No symptoms reported Musculoskeletal: No symptoms reported Skin: No symptoms reported Hematologic/Lymphatic: No symptoms reported Neurological/Psychological: No symptoms reported Physical Exam - Vital signs Vitals: Pulse Resp BP 91 16 132/65 H 09/22/17 19:58 09/22/17 19:58 09/22/17 19:58 Interpretation: Normal - General General appearance: Appears well, Alert In distress: None - HEENT Head: Normocephalic, Atraumatic Eyes: Normal Pupils: PERRL - Respiratory Respiratory status: No respiratory distress Chest status: Nontender Breath sounds: Normal. No: Decreased air movement, Wheezing Chest palpation: Normal - Cardiovascular Rhythm: Regular. No: Tachycardia Heart sounds: Normal auscultation, S1 appreciated, S2 appreciated Murmur: No - Abdominal Inspection: Normal Distension: No distension Bowel sounds: Normal Tenderness: Nontender. No: Tender, Guarding Organomegaly: No organomegaly - Back Back: Normal, Nontender. No: Tender - Extremities General upper extremity: Normal inspection, Nontender, Normal color, Normal ROM , Normal temperature General lower extremity: Normal inspection, Nontender, Normal color, Normal ROM , Normal temperature, Normal weight bearing. No: Marvin's sign - Neurological Neuro grossly intact: Yes Cognition: Normal Orientation: AAOx4 Yuri Coma Scale Eye Opening: Spontaneous [place] Coma Scale Verbal: Oriented [place] Coma Scale Motor: Obeys Commands Yuri Coma Scale Total: 15 Speech: Normal Motor strength normal: LUE, RUE, LLE, RLE Sensory: Normal - Psychological Associated symptoms: Normal affect, Normal mood - Skin Skin Temperature: Warm Skin Moisture: Dry Skin Color: Normal Course - Re-evaluation Re-evalutation: Patient is well-appearing, soft abdomen, denies nausea at this time. No tachycardia, hypotension, or fever. CBC unremarkable, chemistry shows bicarbonate that is low at 15 but normal anion gap. Hyperglycemia noted. Patient is requesting the possibility of going home. Giving insulin, giving IV fluids, after second IV fluid bolus venous blood gas and blood chemistry will be repeated, urine will be checked. Unfortunately venous blood gas shows metabolic acidosis. Bicarbonate is still low, urine shows ketones, elevated specific gravity, bacteria, white blood cells , squamous at the wrist. Given dose of Keflex, urine culture placed. Placing on insulin drip, given dextrose, potassium, will discuss with hospitalist for admission. Discussed with Dr. Baptiste. Patient states understanding after discussion, she states full agreement with admission. Discussed with Dr. Caro, patient will be admitted to the [facility] for diabetic ketoacidosis. - Vital Signs Vital signs: Temp Pulse Resp BP Pulse Ox 91 16 132/65 H 09/22/17 19:58 09/22/17 19:58 09/22/17 19:58 - Laboratory Result Diagrams: 09/22/17 20:55 09/23/17 04:00 Laboratory results interpreted by me: 09/22/17 09/22/17 09/23/17 20:55 20:55 01:29 MCV 77 L MCH 26.5 L RDW 15.1 H VBG pH VBG pCO2 VBG HCO3 Sodium 132.9 L Potassium Chloride Carbon Dioxide 15 L Creatinine Glucose 342 H POC Glucose Calcium Alkaline Phosphatase 135 H Urine Protein 30 H Urine Glucose (UA) >=500 H Urine Ketones 80 H Ur Leukocyte Esterase MODERATE H 09/23/17 09/23/17 09/23/17 01:41 04:00 04:00 MCV MCH RDW VBG pH 7.28 L VBG pCO2 32.3 L VBG HCO3 15.0 L Sodium Potassium 3.5 L Chloride 112 H Carbon Dioxide 14 L Creatinine 0.49 L Glucose 161 H POC Glucose 246 H Calcium 7.4 L Alkaline Phosphatase Urine Protein Urine Glucose (UA) Urine Ketones Ur Leukocyte Esterase 09/23/17 04:48 MCV MCH RDW VBG pH VBG pCO2 VBG HCO3 Sodium Potassium Chloride Carbon Dioxide Creatinine Glucose POC Glucose 148 H Calcium Alkaline Phosphatase Urine Protein Urine Glucose (UA) Urine Ketones Ur Leukocyte Esterase Discharge - Discharge Clinical Impression: DKA (diabetic ketoacidoses) Qualifiers: Diabetes mellitus type: type 1 Diabetes mellitus complication detail: without coma Qualified Code(s): E10.10 - Type 1 diabetes mellitus with ketoacidosis without coma Vomiting Qualifiers: Vomiting type: unspecified Vomiting Intractability: non-intractable Nausea presence: with nausea Qualified Code(s): R11.2 - Nausea with vomiting, unspecified Condition: Fair Disposition: ADMITTED INPATIENT Admitting Provider: Hospitalist Unit Admitted: IMCU
[2017-09-23 04:16] LABS: VENOUS BLOOD BASE EXCESS -10.6 mmol/L; VENOUS BLOOD PCO2 32.3 mmHg (35-63); VENOUS BLOOD PH 7.28 (7.30-7.42)
[2017-09-23 04:33] LABS: ANION GAP 13 (5-19); BLOOD UREA NITROGEN 9 mg/dL (7-20); CALCIUM 7.4 mg/dL (8.4-10.2); CARBON DIOXIDE 14 mmol/L (22-30); CHLORIDE 112 mmol/L (98-107); CREATININE RESULT 0.49 mg/dL (0.52-1.25); GLUCOSE 161 mg/dL (75-110); POTASSIUM 3.5 mmol/L (3.6-5.0); SODIUM 138.7 mmol/L (137-145)
[2017-09-23] MEDS ORDERED: DEXTROSE 50%-WATER 25 GM/50 ML DISP.SYRIN IV PRN ×4 (04:58→05:29)
[2017-09-23] MEDS ORDERED: GLUCAGON,HUMAN RECOMB 1 MG INJ IM PRN ×2 (04:58→05:29)
[2017-09-23] MEDS ORDERED: POTASSI CL 20 MEQ/D5-1/2NS 1L 1,000 ML IV PRN ×2 (04:58→05:29)
[2017-09-23] MEDS ORDERED: DEXTROSE 40% GEL 15 GM TUBE PO PRN ×4 (04:58→05:29)
[2017-09-23] MEDS ORDERED: NORMAL SALINE 100 ML with INSULIN REGULAR, HUMAN 100 UNIT IV PRN ×4 (04:58→05:29)
[2017-09-23] MEDS ORDERED: CEPHALEXIN 500 MG CAPSULE PO ONE (05:09)
[2017-09-23] MEDS ORDERED: INSULIN REG, HUMAN 100 UNIT/ML 3 ML VIAL (PYX) ONE (05:29)
[2017-09-23] MEDS ORDERED: ONDANSETRON 4 MG TAB.RAPDIS PO PRN (05:31)
[2017-09-23] MEDS ORDERED: ACETAMINOPHEN 325 MG TABLET PO PRN (05:34)
--- NOTE | 2017-09-23 05:45 | PDOC H&P ---
History of Present Illness Admission Date/PCP: 09/23/17 05:27 History of Present Illness: STEPH DRAKE is a 27 year old female with past medical history of diabetes mellitus type 1 who reports that she ran out of her long-acting insulin about a week ago. She reports that she got behind on giving herself additional sliding scale insulin. She reports that she had nausea and vomiting at work as well as some abdominal pain. She reports that she took 30 units at someone else's long- acting units. She reports she does not have a glucometer. She is in DKA and referred to the hospital service for this. Past Medical History Pulmonary Medical History: Denies: Tuberculosis Endocrine Medical History: Reports: Diabetes Mellitus Type 1 Past Surgical History Past Surgical History: Reports: None Denies: Pacemaker Social History Smoking Status: Current Some Day Smoker Frequency of Alcohol Use: Occasional Hx Recreational Drug Use: No Hx Prescription Drug Abuse: No - Advance Directive Resuscitation Status: Full Code Surrogate healthcare decision maker:: Lacey grant, mother Family History Family History: DM Parental Family History Reviewed: Yes Children Family History Reviewed: Yes Sibling(s) Family History Reviewed.: Yes Medication/Allergy Home Medications: Hum Insulin NPH/Reg Insulin Hm [Humulin 70-30 Vial] 28 unit SQ BID #0 ml Insulin Glargine,Hum.rec.anlog [Lantus Insulin 100 Unit/1 ml 10 ml] 15 unit SUBCUT BID #1 bottle 08/14/16 Insulin Lispro [Humalog] 100 unit SQ MEALS #1 bottle 08/14/16 Syringe and Needle,Insulin,1Ml [Insulin Syringe] 1 each MC TID #100 disp.syrin 08/14/16 Cephalexin Monohydrate [Keflex 500 mg Capsule] 500 mg PO QID #40 capsule Metoclopramide HCl [Reglan] 5 mg PO Q6 #30 tablet 05/23/17 Ondansetron HCl [Zofran 4 mg Tablet] 1 - 2 tab PO Q6 PRN #15 tablet 06/01/17 Cephalexin Monohydrate [Keflex 500 mg Capsule] 500 mg PO BID 7 Days capsule Phenazopyridine HCl [Pyridium 200 mg Tablet] 200 mg PO TID #9 tablet 07/18/17 Allergies/Adverse Reactions: No Known Allergies Allergy (Verified 09/22/17 19:50) Review of Systems Constitutional: ABSENT: chills, fever(s), headache(s), weight gain, weight loss Eyes: ABSENT: visual disturbances Ears: ABSENT: hearing changes Cardiovascular: ABSENT: chest pain, dyspnea on exertion, edema, orthropnea, palpitations Respiratory: ABSENT: cough, hemoptysis Gastrointestinal: PRESENT: as per HPI, abdominal pain, nausea, vomiting. ABSENT : constipation, diarrhea, hematemesis, hematochezia Genitourinary: ABSENT: dysuria, hematuria Musculoskeletal: ABSENT: joint swelling Integumentary: ABSENT: rash, wounds Neurological: ABSENT: abnormal gait, abnormal speech, confusion, dizziness, focal weakness, syncope Psychiatric: ABSENT: anxiety, depression, homidical ideation, suicidal ideation Endocrine: ABSENT: cold intolerance, heat intolerance, polydipsia, polyuria Hematologic/Lymphatic: ABSENT: easy bleeding, easy bruising Physical Exam Vital Signs: Temp Pulse Resp BP Pulse Ox 91 16 132/65 H 09/22/17 19:58 09/22/17 19:58 09/22/17 19:58 General appearance: PRESENT: no acute distress, obese, well-developed, well- nourished Head exam: PRESENT: atraumatic, normocephalic Eye exam: PRESENT: conjunctiva pink, EOMI, PERRLA. ABSENT: scleral icterus Ear exam: PRESENT: normal external ear exam Mouth exam: PRESENT: dry mucosa, tongue midline Neck exam: ABSENT: JVD, lymphadenopathy, thyromegaly, tracheal deviation Respiratory exam: PRESENT: clear to auscultation cindi. ABSENT: rales, rhonchi, wheezes Cardiovascular exam: PRESENT: RRR, +S1, +S2. ABSENT: diastolic murmur, rubs, systolic murmur Pulses: PRESENT: normal dorsalis pedis pul Vascular exam: PRESENT: normal capillary refill GI/Abdominal exam: PRESENT: normal bowel sounds, soft. ABSENT: distended, guarding, mass, organolmegaly, rebound, tenderness Rectal exam: PRESENT: deferred Extremities exam: PRESENT: full ROM. ABSENT: calf tenderness, clubbing, pedal edema Neurological exam: PRESENT: alert, awake, oriented to person, oriented to place , oriented to time, oriented to situation, CN II-XII grossly intact. ABSENT: motor sensory deficit Psychiatric exam: PRESENT: appropriate affect, normal mood. ABSENT: homicidal ideation, suicidal ideation Skin exam: PRESENT: dry, intact, warm. ABSENT: cyanosis, rash Results Laboratory Results: 09/22/17 09/23/17 09/23/17 20:55 01:29 04:00 WBC 8.1 MCV 77 L VBG pH 7.28 L VBG pCO2 32.3 L Potassium Carbon Dioxide Creatinine Glucose Calcium Urine Ketones 80 H 09/23/17 04:00 WBC MCV VBG pH VBG pCO2 Potassium 3.5 L Carbon Dioxide 14 L Creatinine 0.49 L Glucose 161 H Calcium 7.4 L Urine Ketones Assessment & Plan - Diagnosis (1) DKA (diabetic ketoacidoses) Qualifiers: Diabetes mellitus type: type 1 Diabetes mellitus complication detail: without coma Qualified Code(s): E10.10 - Type 1 diabetes mellitus with ketoacidosis without coma Is this a current diagnosis for this admission?: Yes Plan: Secondary to being out of her insulin. Due to her low blood sugar at this time, will start on D5 half-normal with 20 potassium at 200 mL an hour. Start insulin drip at 0.1/kg. BMP every 4 hours outreach educator discharge planning consult for assistance with medicine - Time Time Spent: 30 to 50 Minutes Medications reviewed and adjusted accordingly: Yes Anticipated discharge: Home Within: within 48 hours - Inpatient Certification Based on my medical assessment, after consideration of the patient's comorbidities, presenting symptoms, or acuity I expect that the services needed warrant INPATIENT care.: Yes I certify that my determination is in accordance with my understanding of Medicare's requirements for reasonable and necessary INPATIENT services [42 CFR 412.3e].: Yes Medical Necessity: Need For IV Fluids, Need For Continuous Telemetry Monitoring Post Hospital Care: D/C Manager Sourcing Documentation
[2017-09-23] MEDS ORDERED: NORMAL SALINE 1000 ML 1,000 ML IV PRN (08:19)
[2017-09-23] MEDS ORDERED: INSULIN GLARGINE,HUM.REC.ANLOG 1,000 UNIT/10 ML UNIT SUBCUT SCH ×2 (08:19→10:00)
[2017-09-23] MEDS ORDERED: POTASSI CL 20 MEQ/50 ML RIDER 20 MEQ/50 ML RTUPB IV ONE (08:21)
[2017-09-23 09:06] LABS: ANION GAP 10 (5-19); BLOOD UREA NITROGEN 6 mg/dL (7-20); CALCIUM 7.7 mg/dL (8.4-10.2); CARBON DIOXIDE 19 mmol/L (22-30); CHLORIDE 108 mmol/L (98-107); CREATININE RESULT 0.44 mg/dL (0.52-1.25); GLUCOSE 114 mg/dL (75-110); POTASSIUM 3.6 mmol/L (3.6-5.0); SODIUM 137.1 mmol/L (137-145)
[2017-09-23] MEDS: BACITRACIN ZINC OINTMENT 15 GM TP SCH (09:37)
[2017-09-23] MEDS: ENOXAPARIN SODIUM INJ 40 MG/0.4 ML DISP.SYRIN SUBCUT SCH (09:38)
[2017-09-23] MEDS: INSULIN GLARGINE,HUM.REC.ANLOG 1,000 UNIT/10 ML UNIT SUBCUT SCH ×2 (10:03→23:41)
[2017-09-23] MEDS ORDERED: INSULIN LISPRO 100 UNIT/ML 3 ML VIAL SUBCUT PRN (12:29)
[2017-09-23 15:09] LABS: ANION GAP 11 (5-19); BLOOD UREA NITROGEN 4 mg/dL (7-20); CALCIUM 7.8 mg/dL (8.4-10.2); CARBON DIOXIDE 18 mmol/L (22-30); CHLORIDE 106 mmol/L (98-107); GLUCOSE 240 mg/dL (75-110); POTASSIUM 3.5 mmol/L (3.6-5.0); SODIUM 135.1 mmol/L (137-145)
--- NOTE | 2017-09-23 15:13 | PDOC PROGRESS REPORT ---
Subjective Progress Note for:: 09/23/17 Subjective:: Pt is seen on rounds for a follow up of DKA. She remains in the emergency room while awaiting bed placement. She complains that the clear liquid diet that is ordered for her is unappetizing and reports that she has return of her appetite. She requests to have her diet advanced to allow for regular meals. She denies abdominal pain, nausea, vomiting. Additionally, she denies polydipsia and polyuria. Overall, she reports that she is feeling much improved and ready for discharge. She is concerned, however, about being able to afford her insulin. She states that she will have healthcare insurance beginning October 20 and request resources to help her obtain insulin for the interim. Otherwise, she has no other questions or concerns today. Reason For Visit: DKA Physical Exam Vital Signs: Temp Pulse Resp BP Pulse Ox 98.1 F 91 17 128/90 H 99 09/23/17 10:00 09/22/17 19:58 09/23/17 11:04 09/23/17 11:04 09/23/17 11:04 General appearance: PRESENT: no acute distress, well-developed, well-nourished, other - overweight Head exam: PRESENT: atraumatic, normocephalic Eye exam: PRESENT: conjunctiva pink, EOMI, PERRLA. ABSENT: scleral icterus Ear exam: PRESENT: normal external ear exam Mouth exam: PRESENT: moist, tongue midline Neck exam: ABSENT: carotid bruit, JVD, lymphadenopathy, thyromegaly Respiratory exam: PRESENT: clear to auscultation cindi. ABSENT: rales, rhonchi, wheezes Cardiovascular exam: PRESENT: RRR. ABSENT: diastolic murmur, rubs, systolic murmur Pulses: PRESENT: normal dorsalis pedis pul Vascular exam: PRESENT: normal capillary refill GI/Abdominal exam: PRESENT: normal bowel sounds, soft. ABSENT: distended, guarding, mass, organolmegaly, rebound, tenderness Rectal exam: PRESENT: deferred Extremities exam: PRESENT: full ROM. ABSENT: calf tenderness, clubbing, pedal edema Neurological exam: PRESENT: alert, awake, oriented to person, oriented to place , oriented to time, oriented to situation, CN II-XII grossly intact. ABSENT: motor sensory deficit Psychiatric exam: PRESENT: appropriate affect, normal mood. ABSENT: homicidal ideation, suicidal ideation Skin exam: PRESENT: dry, intact, warm. ABSENT: cyanosis, rash Results Laboratory Results: 09/23/17 08:32 Sodium 137.1 Potassium 3.6 Chloride 108 H Carbon Dioxide 19 L Anion Gap 10 BUN 6 L Creatinine 0.44 L Est GFR ( Amer) > 60 Est GFR (Non-Af Amer) > 60 Glucose 114 H Calcium 7.7 L Assessment & Plan - Diagnosis (1) DKA (diabetic ketoacidoses) Qualifiers: Diabetes mellitus type: type 1 Diabetes mellitus complication detail: without coma Qualified Code(s): E10.10 - Type 1 diabetes mellitus with ketoacidosis without coma Is this a current diagnosis for this admission?: Yes Plan: Related to her running out of insulin secondary to financial barriers and lack of health insurance. At this time the anion gap is closed and so she will be transitioned to Lantus at her previous home dose with Humalog for sliding scale coverage. Her bicarb remains elevated and so will continue IV fluids. Will monitor with serial BMPs. I have asked the unit educator, train planner, and patient navigator to consult with the patient for medication assistance, social resources, and evaluation of financial/insurance eligibility. We will advance her diet to a concentric carb diet with Accu-Cheks before meals and at bedtime. Anticipate that the patient will be stable for discharge in the morning. - Time Time Spent with patient: 15-24 minutes Anticipated discharge: Home Within: within 24 hours - Inpatient Certification Based on my medical assessment, after consideration of the patient's comorbidities, presenting symptoms, or acuity I expect that the services needed warrant INPATIENT care.: Yes I certify that my determination is in accordance with my understanding of Medicare's requirements for reasonable and necessary INPATIENT services [42 CFR 412.3e].: Yes Medical Necessity: Need For IV Fluids
[2017-09-23 16:20] LABS: ANION GAP 12 (5-19); BLOOD UREA NITROGEN 3 mg/dL (7-20); CALCIUM 7.6 mg/dL (8.4-10.2); CARBON DIOXIDE 18 mmol/L (22-30); CHLORIDE 107 mmol/L (98-107); CREATININE RESULT 0.41 mg/dL (0.52-1.25); GLUCOSE 181 mg/dL (75-110); POTASSIUM 3.4 mmol/L (3.6-5.0); SODIUM 137.2 mmol/L (137-145)
[2017-09-23] MEDS: INSULIN LISPRO 100 UNIT/ML 3 ML VIAL SUBCUT PRN ×2 (17:26→23:47)
[2017-09-23 20:48] LABS: ANION GAP 10 (5-19); BLOOD UREA NITROGEN 7 mg/dL (7-20); CALCIUM 8.2 mg/dL (8.4-10.2); CARBON DIOXIDE 22 mmol/L (22-30); CHLORIDE 106 mmol/L (98-107); GLUCOSE 240 mg/dL (75-110); POTASSIUM 3.7 mmol/L (3.6-5.0); SODIUM 137.8 mmol/L (137-145)
[2017-09-24 00:46] LABS: ANION GAP 9 (5-19); BLOOD UREA NITROGEN 7 mg/dL (7-20); CALCIUM 8.6 mg/dL (8.4-10.2); CARBON DIOXIDE 22 mmol/L (22-30); CHLORIDE 104 mmol/L (98-107); CREATININE RESULT 0.42 mg/dL (0.52-1.25); GLUCOSE 273 mg/dL (75-110); POTASSIUM 3.2 mmol/L (3.6-5.0); SODIUM 134.9 mmol/L (137-145)
[2017-09-24 04:35] VITALS: BP 114/80
[2017-09-24 05:18] LABS: ANION GAP 10 (5-19); BLOOD UREA NITROGEN 7 mg/dL (7-20); CALCIUM 8.7 mg/dL (8.4-10.2); CARBON DIOXIDE 21 mmol/L (22-30); CHLORIDE 109 mmol/L (98-107); CREATININE RESULT 0.46 mg/dL (0.52-1.25); GLUCOSE 111 mg/dL (75-110); MAGNESIUM 1.8 mg/dL (1.6-2.3); SODIUM 140.3 mmol/L (137-145)
[2017-09-24] MEDS ORDERED: POTASSI CL 20 MEQ/50 ML RIDER 20 MEQ/50 ML RTUPB IV ONE (06:26)
[2017-09-24] MEDS ORDERED: POTASSIUM CHLORIDE 10 MEQ TABLET.SA PO ONE ×3 (06:27→08:00)
[2017-09-24] MEDS ORDERED: POTASSIUM CHLORIDE 20 MEQ/50 ML RTU IV ONE (07:15)
[2017-09-24] MEDS ORDERED: INSULIN LISPRO 100 UNIT/ML 3 ML VIAL SUBCUT PRN (10:15)
[2017-09-24 10:16] LABS: ANION GAP 10 (5-19); BLOOD UREA NITROGEN 8 mg/dL (7-20); CALCIUM 9.1 mg/dL (8.4-10.2); CARBON DIOXIDE 22 mmol/L (22-30); CHLORIDE 106 mmol/L (98-107); CREATININE RESULT 0.44 mg/dL (0.52-1.25); GLUCOSE 199 mg/dL (75-110); SODIUM 138.1 mmol/L (137-145)
[2017-09-24 10:25] LABS: POTASSIUM 4.2 mmol/L (3.6-5.0)
[2017-09-24] MEDS: ENOXAPARIN SODIUM INJ 40 MG/0.4 ML DISP.SYRIN SUBCUT SCH (11:27)
[2017-09-24] MEDS: BACITRACIN ZINC OINTMENT 15 GM TP SCH (11:27)
--- NOTE | 2017-09-24 18:22 | PDOC DISCHARGE SUMMARY ---
General - Admit/Disc Date/PCP Admission Date/Primary Care Provider: 09/23/17 05:27 Discharge Date: 09/24/17 - Discharge Diagnosis (1) DKA (diabetic ketoacidoses) Is this a current diagnosis for this admission?: Yes Summary: The patient was admitted with DKA secondary to running out of insulin due to financial barriers and lack of health insurance. She was briefly on an insulin drip with rapid closure of her anion gap. She was transitioned to her home dosing of Lantus and Humalog. She was continued on IV fluids overnight for dehydration and correction of her bicarb. Prior to discharge, she met with discharge planning, patient navigator, and tobacco prevention health educator. She is currently tolerating a consistent carb diet with appropriate blood glucose in response to subcutaneous insulin. Her nausea and vomiting have resolved. She is being discharged home with prescriptions for Lantus, Humalog, test strips and lancets. She has been provided a new glucometer for the hospital. - Additional Information Resuscitation Status: Full Code Discharge Diet: Diabetic Discharge Activity: Activity As Tolerated Home Medications: Insulin Glargine,Hum.rec.anlog [Lantus Insulin 100 Unit/mL] 15 unit SUBCUT Q12 # 4 insuln.pen 09/24/17 Insulin Lispro [Humalog Kwikpen U-100] 0 - 10 units SQ ASDIR PRN #4 insuln.pen 09/24/17 Ondansetron [Zofran Odt 4 mg Tablet] 4 mg PO Q6HP PRN #12 tab.rapdis 09/24/17 Pen Needle, Diabetic [Insulin Pen Needle] 1 each MC 6XD #100 dis.needle History of Present Illness History of Present Illness: Per H&P by Dr. Caro: STEPH DRAKE is a 27 year old female with past medical history of diabetes mellitus type 1 who reports that she ran out of her long- acting insulin about a week ago. She reports that she got behind on giving herself additional sliding scale insulin. She reports that she had nausea and vomiting at work as well as some abdominal pain. She reports that she took 30 units of someone else's long-acting units. She reports she does not have a glucometer. She is in DKA and referred to the hospitalist service for this. Physical Exam Vital Signs: Temp Pulse Resp BP Pulse Ox 97.9 F 75 14 114/80 99 12/06/17 04:31 09/24/17 04:31 09/24/17 04:31 09/24/17 04:31 09/24/17 04:31 Intake & Output 09/23/17 09/24/17 09/25/17 06:59 06:59 06:59 Output Total 450 Balance -450 General appearance: PRESENT: no acute distress, well-developed, well-nourished Head exam: PRESENT: atraumatic, normocephalic Eye exam: PRESENT: conjunctiva pink, EOMI, PERRLA. ABSENT: scleral icterus Ear exam: PRESENT: normal external ear exam Mouth exam: PRESENT: moist, tongue midline Neck exam: ABSENT: carotid bruit, JVD, lymphadenopathy, thyromegaly Respiratory exam: PRESENT: clear to auscultation cindi. ABSENT: rales, rhonchi, wheezes Cardiovascular exam: PRESENT: RRR. ABSENT: diastolic murmur, rubs, systolic murmur Pulses: PRESENT: normal dorsalis pedis pul Vascular exam: PRESENT: normal capillary refill GI/Abdominal exam: PRESENT: normal bowel sounds, soft. ABSENT: distended, guarding, mass, organolmegaly, rebound, tenderness Rectal exam: PRESENT: deferred Extremities exam: PRESENT: full ROM. ABSENT: calf tenderness, clubbing, pedal edema Neurological exam: PRESENT: alert, awake, oriented to person, oriented to place , oriented to time, oriented to situation, CN II-XII grossly intact. ABSENT: motor sensory deficit Psychiatric exam: PRESENT: appropriate affect, normal mood. ABSENT: homicidal ideation, suicidal ideation Skin exam: PRESENT: dry, intact, warm. ABSENT: cyanosis, rash Results Laboratory Results: 09/24/17 09:40 09/23/17 09/24/17 09/24/17 20:10 00:19 04:30 Sodium 137.8 134.9 L 140.3 Potassium 3.7 3.2 L 3.0 L* Chloride 106 104 109 H Carbon Dioxide 22 22 21 L Anion Gap 10 9 10 BUN 7 7 7 Creatinine 0.50 L 0.42 L 0.46 L Est GFR ( Amer) > 60 > 60 > 60 Est GFR (Non-Af Amer) > 60 > 60 > 60 Glucose 240 H 273 H 111 H Calcium 8.2 L 8.6 8.7 Magnesium 1.8 09/24/17 09:40 Sodium 138.1 Potassium 4.2 D Chloride 106 Carbon Dioxide 22 Anion Gap 10 BUN 8 Creatinine 0.44 L Est GFR ( Amer) > 60 Est GFR (Non-Af Amer) > 60 Glucose 199 H Calcium 9.1 Magnesium Qualifiers [place] BEING DISCHARGED WITH ANY OF THE FOLLOWING DIAGNOSIS?: No Plan Discharge Plan: Discharge to home with self-care. Patient has been provided a referral to establish with primary care; should be seen within 1-2 weeks. Has been provided prescriptions for Lantus, Humalog, glucometer, test strips and lancets , and Zofran. Patient is encouraged to eat a consistent carb diet and increase her water intake. Time Spent: Less than 30 Minutes
[2017-09-24] MEDS ORDERED: INSULIN GLARGINE,HUM.REC.ANLOG 1,000 UNIT/10 ML UNIT SUBCUT SCH (22:00)
[2017-09-24] MEDS ORDERED: INSULIN GLARGINE,HUM.REC.ANLOG 300 UNIT/3 ML INSULN.PEN SUBCUT SCH ×2 (22:00)
== END 2017-09-24 13:01 | disposition home or self-care (01) | DRG 639 ==
LOC: ER 19:48 → EH 09-23 05:27
PROVIDERS: ADMIT Family Medicine; ATTEND Family Medicine
DX: E10.10 Type 1 diabetes mellitus with ketoacidosis without coma (principal); T38.3X6A Underdosing of insulin and oral hypoglycemic [antidiabetic] drugs, initial encounter; F17.210 Nicotine dependence, cigarettes, uncomplicated; Z91.138 Patient's unintentional underdosing of medication regimen for other reason; Z79.899 Other long term (current) drug therapy; Z79.4 Long term (current) use of insulin; Z60.2 Problems related to living alone; Z83.3 Family history of diabetes mellitus
CPT/HCPCS: 36415; 80048; 80053; 81001; 81025; 82803; 82962; 83036; 83735; 85025; 87086; 96360; 96361; 99284; J1650; J1815; J3480; J3490; J7030

== ENCOUNTER 2018-11-09 11:14 | Emergency (ER) | payer BC, MEDICAID ==
[2018-11-09] MEDS ORDERED: ACETAMINOPHEN 325 MG TABLET PO ONE (12:13)
[2018-11-09 12:25] LABS: A TYPE INFLUENZA AG NEGATIVE (NEGATIVE); B INFLUENZA AG NEGATIVE (NEGATIVE)
--- NOTE | 2018-11-09 12:46 | ER Document Report ---
HPI - HPI Time Seen by Provider: 11/09/18 12:10 Pain Level: 3 Notes: Patient is a 28-year-old female who presents with chief complaint of cough, congestion and sore throat over the last 3 days. Patient reports development of fever yesterday. Patient denies any nausea, vomiting or diarrhea. - CONSTITUTIONAL Constitutional: REPORTS: Fever, Chills - EENT EENT: REPORTS: Sore Throat - RESPIRATORY Respiratory: REPORTS: Coughing - REPRODUCTIVE Reproductive: DENIES: : Past Medical History - General Information source: Patient - Social History Smoking Status: Never Smoker Frequency of alcohol use: None Drug Abuse: None Family History: DM Patient has suicidal ideation: No Patient has homicidal ideation: No Pulmonary Medical History: Denies: Hx Tuberculosis Endocrine Medical History: Reports: Hx Diabetes Mellitus Type 1 Renal/ Medical History: Denies: Hx Peritoneal Dialysis Psychiatric Medical History: Denies: Hx Depression Past Surgical History: Denies: Hx Pacemaker - Immunizations Immunizations up to date: No Hx Diphtheria, Pertussis, Tetanus Vaccination: Yes Vertical Provider Document - CONSTITUTIONAL Notes: PHYSICAL EXAMINATION: GENERAL: Well-appearing, well-nourished and in no acute distress. HEAD: Atraumatic, normocephalic. EYES: Pupils equal round extraocular movements intact, conjunctiva are normal. ENT: Nares patent with clear rhinorrhea, mild erythema to bilateral tonsils without tonsillar swelling or exudates. Uvula midline. NECK: Normal range of motion, no cervical lymphadenopathy. LUNGS: No respiratory distress, lung sounds clear to auscultation bilaterally Musculoskeletal: Normal range of motion NEUROLOGICAL: Normal speech, normal gait. PSYCH: Normal mood, normal affect. SKIN: Warm, Dry, normal turgor, no rashes or lesions noted. - INFECTION CONTROL TRAVEL OUTSIDE OF THE [place] IN LAST 30 DAYS: No COUNTRY TRAVELED TO/FROM: [place] Course - Re-evaluation Re-evalutation: Rapid strep and flu are both negative. Patient diagnosed with viral upper respiratory illness. - Vital Signs Vital signs: Temp Pulse Resp BP Pulse Ox 101.5 F H 95 16 149/74 H 98 11/09/18 11:26 11/09/18 11:26 11/09/18 11:26 11/09/18 11:26 11/09/18 11:26 Discharge - Discharge Clinical Impression: Viral upper respiratory illness, Sore throat Condition: Stable Disposition: HOME, SELF-CARE Additional Instructions: Your symptoms are most likely due to a viral infection it should resolve over the next 7-14 days. You should take [id number] guanfacine per bottle instructions to help thin the mucus. For nasal congestion: I would recommend that you get [id number] oxymetazoline also known is afrin. Use only per bottle instructions and be sure to never use this for more than 3 days if you can develop severe rebound congestion. You may also use tylenol or ibuprofen as needed for aches and thorat discomfort. Please be sure to drink plenty of fluids and get rest. Return to the emergency department he began having difficulty breathing, chest pain, persistent vomiting, or any other symptoms that are concerning to you. Prescriptions: Benzonatate [Tessalon Perles 100 mg Capsule] 100 mg PO Q8HP PRN #40 capsule PRN Reason: Prednisone [Deltasone 20 mg Tablet] 3 tab PO DAILY 5 Days #15 tablet Forms: Return to Work Referrals: DOMENIC CALDERA MD [Primary Care Provider] - Follow up as needed
[2018-11-09 13:07] VITALS: BP 121/80
== END 2018-11-09 13:08 | disposition home or self-care (01) ==
LOC: ER 11:14
DX: J06.9 Acute upper respiratory infection, unspecified (principal); B97.89 Other viral agents as the cause of diseases classified elsewhere; J02.9 Acute pharyngitis, unspecified; R05 Cough; R09.81 Nasal congestion; R50.9 Fever, unspecified; E10.9 Type 1 diabetes mellitus without complications
CPT/HCPCS: 87070; 87804; 87880; 99283

== ENCOUNTER 2019-03-30 19:20 | Emergency (ER) | payer BC, MEDICAID ==
[2019-03-30 20:27] VITALS: BP 140/83
[2019-03-30] MEDS ORDERED: ONDANSETRON 4 MG TAB.RAPDIS PO ONE (20:30)
--- NOTE | 2019-03-30 20:36 | ER Document Report ---
Addendum entered and electronically signed by AD BUCKLEY NP 03/31/19 16:57: Course - Re-evaluation Re-evalutation: 03/31/19 16:56 [facility] pharmacy called to verify patient's prescription as patient is not wanting to cartridge which she is wanting a pin. Pharmacy also wanted to clarify what the dose and directions should be for her sliding scale. Pharmacy advised that no guidelines for her sliding scale were given on the prescription. Pharmacy will contact patient and then may call back again to discuss plan for filling her medications at this time. - Vital Signs Vital signs: Temp Pulse Resp BP Pulse Ox 98.9 F 90 14 140/83 H 98 03/30/19 19:48 03/30/19 19:48 03/30/19 19:48 03/30/19 19:48 03/30/19 19:48 - Laboratory Laboratory results interpreted by me: 03/30/19 19:45 POC Glucose 262 H Original Note: HPI - HPI Time Seen by Provider: 03/30/19 20:25 Pain Level: 1 Notes: Patient is a 28-year-old female with history of insulin-dependent diabetes who presents complaining of being out of her fast acting insulin, Humalog, which she uses on a sliding scale 3 times a day with her meals. Patient states that she has not been eating as much ingesting vegetables if she has not had her insulin which caused her to lose a few pounds over the last several days. Patient has tried contacting her primary care provider who has not called her back yet. Patient states that she is still urinating normally and having normal bowel movements. Patient states that she does feel like this when her sugars are fluctuant. She has no other concerns or complaints, but would like nausea medicine as well as a prescription for her insulin. Denies any headache, fever, neck pain, changes in vision/speech/mentation/hearing, URI, sore throat, chest pain, palpitations, syncope, cough, shortness of breath, wheeze, dyspnea, abdominal pain, vomiting/diarrhea, urinary retention, dysuria, hematuria, or rash. - ROS Systems Reviewed and Negative: Yes All other systems reviewed and negative - REPRODUCTIVE LMP: 03/12/19 Reproductive: DENIES: : - DERM Skin Color: Normal, [place] Past Medical History - Social History Smoking Status: Current Some Day Smoker Frequency of alcohol use: Occasional Drug Abuse: None Family History: DM Patient has suicidal ideation: No Patient has homicidal ideation: No Pulmonary Medical History: Denies: Hx Tuberculosis Endocrine Medical History: Reports: Hx Diabetes Mellitus Type 1 Renal/ Medical History: Denies: Hx Peritoneal Dialysis Psychiatric Medical History: Denies: Hx Depression Past Surgical History: Denies: Hx Pacemaker - Immunizations Immunizations up to date: No Hx Diphtheria, Pertussis, Tetanus Vaccination: Yes Vertical Provider Document - CONSTITUTIONAL Agree With Documented VS: Yes Notes: PHYSICAL EXAMINATION: GENERAL: Well-appearing, well-nourished and in no acute distress. A&Ox4. Answers questions appropriately. HEAD: Atraumatic, normocephalic. EYES: Pupils equal round and reactive to light, extraocular movements intact, sclera anicteric, conjunctiva are normal. ENT: Nares patent and without discharge. oropharynx clear without exudates. No tonsilar hypertrophy or erythema. Moist mucous membranes. NECK: Normal range of motion, supple without lymphadenopathy LUNGS: Breath sounds clear to auscultation bilaterally and equal. No wheezes rales or rhonchi. HEART: Regular rate and rhythm without murmurs, rubs, gallops. ABDOMEN: Soft, nontender, nondistended abdomen. No guarding, no rebound. Normal bowel sounds present. No CVA tenderness bilaterally. Musculoskeletal: FROM to passive/active. Strength 5+/5. Extremities: No cyanosis, clubbing, or edema b/l. Peripheral pulses 2+. Capillary refill less than 3 seconds. NEUROLOGICAL: Cranial nerves grossly intact. Normal speech, normal gait. Normal sensory, motor exams PSYCH: Normal mood, normal affect. SKIN: Warm, Dry, normal turgor, no rashes or lesions noted. - INFECTION CONTROL TRAVEL OUTSIDE OF THE [place] IN LAST 30 DAYS: No COUNTRY TRAVELED TO/FROM: [email or web address] Course - Re-evaluation Re-evalutation: 03/30/19 20:34 Patient is an afebrile, well-hydrated, 28-year-old female who presents with elevated glucose and requesting prescription for her insulin. Vitals are acceptable without significant tachycardia, tachypnea, or hypoxia. PE is oth erwise unremarkable. Patient's abdomen is soft and nontender. Lungs are clear to auscultation bilaterally. Cranial nerves grossly intact. Patient is nontoxic-appearing is able to tolerate p.o. without difficulty. Accu-Chek acceptable. No further work-up warranted at this time. Low suspicion for any DKA, HHS, sepsis, meningitis, severe dehydration, respiratory compromise, acute abdomen, or other systemic emergent condition at this time. Patient is aware that condition can change from initial presentation and she needs to monitor symptoms closely and seek medical attention with any acute changes. I will send her home with a per scription for her Humalog as well as some nausea medicine. Recheck with your PCM this week. Return to the ED with any other worsening/concerning symptoms. Patient is in agreement. - Vital Signs Vital signs: Temp Pulse Resp BP Pulse Ox 98.9 F 90 14 140/83 H 98 03/30/19 19:48 03/30/19 19:48 03/30/19 19:48 03/30/19 19:48 03/30/19 19:48 - Laboratory Laboratory results interpreted by me: 03/30/19 19:45 POC Glucose 262 H Discharge - Discharge Clinical Impression: Elevated glucose, Medication refill Condition: Stable Disposition: HOME, SELF-CARE Additional Instructions: Maintain adequate fluid and food intake Take home medications as directed Low carb/sugar diet Monitor blood glucose daily and keep a log Monitor symptoms for any acute changes Recheck with your PCM in 2-3 days Consider a follow-up with endocrinology Return to the ED with any worsening symptoms and/or development of fever, headache, chest pain, palpitations, syncope, shortness of breath, trouble breathing, abdominal pain, n/v/d, blood in stool/urine, loss of control of bowel/bladder, urinary retention, muscle weakness/paralysis, numbness/tingling, or other worsening symptoms that are concerning to you. Prescriptions: Insulin Lispro [Humalog] 100 unit SQ ASDIR #1 cartridge Insulin Lispro [Humalog] 200 unit SQ ASDIR #1 cartridge Forms: Elevated Blood Pressure Referrals: SEMAJ HANEY MD [NO LOCAL MD] - Follow up as needed
== END 2019-03-30 20:50 | disposition home or self-care (01) ==
LOC: ER 19:20
DX: E10.9 Type 1 diabetes mellitus without complications (principal); Z79.4 Long term (current) use of insulin; F17.200 Nicotine dependence, unspecified, uncomplicated
CPT/HCPCS: 99283; 82962; S0119

== ENCOUNTER 2019-07-21 11:01 | Emergency (ER) | payer BC ==
[2019-07-21] MEDS ORDERED: NORMAL SALINE 1000 ML 1,000 ML IV ONE ×2 (11:12→11:13)
--- NOTE | 2019-07-21 11:14 | ER Document Report ---
ED Medical Screen (RME) - General Chief Complaint: High Blood Sugar Stated Complaint: WEAKNESS Primary Care Provider: KATIE CHAN MD [Primary Care Provider] - Follow up as needed Mode of Arrival: Ambulatory Information source: Patient Notes: 28-year-old female presented to ED for complaint of DKA symptoms. She states she has been very weak tired has been running in 5 and 600s. She has had nausea and diarrhea. She states she quit smoking a month ago she rarely drinks. She states she spent out of her insulin for about 2 weeks. She is type I diabetic. She lives with her parents. DKA work-up has been started. I have greeted and performed a rapid initial assessment of this patient. A comprehensive ED assessment and evaluation of the patient, analysis of test results and completion of medical decision making process will be conducted by an additional ED providers. TRAVEL OUTSIDE OF THE [place] IN LAST 30 DAYS: No COUNTRY TRAVELED TO/FROM: [place] - Related Data Allergies/Adverse Reactions: No Known Allergies Allergy (Verified 07/21/19 11:10) Past Medical History Pulmonary Medical History: Denies: Hx Tuberculosis Endocrine Medical History: Reports: Hx Diabetes Mellitus Type 1 Renal/ Medical History: Denies: Hx Peritoneal Dialysis Psychiatric Medical History: Denies: Hx Depression Past Surgical History: Denies: Hx Pacemaker - Immunizations Immunizations up to date: No Hx Diphtheria, Pertussis, Tetanus Vaccination: Yes Doctor's Discharge - Discharge Referrals: KATIE CHAN MD [Primary Care Provider] - Follow up as needed
[2019-07-21 11:49] LABS: ABSOLUTE BASOPHILS # (AUTO) 0.1 10^3/uL (0.0-0.2); ABSOLUTE EOSINOPHILS # (AUTO) 0.1 10^3/uL (0.0-0.6); ABSOLUTE LYMPHOCYTES (AUTO) 1.4 10^3/uL (0.5-4.7); ABSOLUTE MONOCYTES (AUTO) 0.4 10^3/uL (0.1-1.4); ABSOLUTE NEUT (AUTO) 5.9 10^3/uL (1.7-8.2); BASOPHILS % (AUTO) 0.9 % (0-2); EOSINOPHILS % (AUTO) 1.3 % (0-6); HEMATOCRIT 42.1 % (36.0-47.0); HEMOGLOBIN 13.8 g/dL (12.0-15.5); LYMPHOCYTES % (AUTO) 17.9 % (13-45); MEAN CORPUSCULAR HEMOGLOBIN 26.1 pg (27.0-33.4); MEAN CORPUSCULAR HGB CONC 32.7 g/dL (32.0-36.0); MEAN CORPUSCULAR VOLUME 80 fl (80-97); MONOCYTES % (AUTO) 5.3 % (3-13); PLATELET COUNT 267 10^3/uL (150-450); RED BLOOD COUNT 5.28 10^6/uL (3.72-5.28); RED CELL DISTRIBUTION WIDTH 14.9 % (11.5-14.0); SEGMENTED NEUTROPHILS % (AUTO) 74.6 % (42-78); TOTAL CELLS COUNTED % (AUTO) 100 %; VENOUS BLOOD BASE EXCESS -2.9 mmol/L; VENOUS BLOOD HCO3 21.3 mmol/L (20-32); VENOUS BLOOD PCO2 35.3 mmHg (35-63); VENOUS BLOOD PH 7.4 (7.30-7.42); WHITE BLOOD COUNT 7.9 10^3/uL (4.0-10.5)
[2019-07-21 11:53] LABS: APPEARANCE,URINE SLIGHTLY-CLOUDY; BILIRUBIN,URINE NEGATIVE (NEGATIVE); COLOR,URINE YELLOW; GLUCOSE, URINE >=500 mg/dL (NEGATIVE); KETONES,URINE 20 mg/dL (NEGATIVE); LEUKOCYTE ESTERASE,URINE TRACE (NEGATIVE); NITRITE,URINE NEGATIVE (NEGATIVE); PROTEIN,URINE 30 mg/dL (NEGATIVE); URINE SPECIFIC GRAVITY 1.032; UROBILINOGEN,URINE NEGATIVE mg/dL (<2.0)
[2019-07-21 12:12] LABS: ALKALINE PHOSPHATASE 149 U/L (38-126); ANION GAP 12 (5-19); ASPARTATE AMINO TRANSFERASE 22 U/L (14-36); BILIRUBIN,DIRECT 0.2 mg/dL (0.0-0.4); BILIRUBIN,TOTAL 0.4 mg/dL (0.2-1.3); BLOOD UREA NITROGEN 11 mg/dL (7-20); CALCIUM 9.2 mg/dL (8.4-10.2); CARBON DIOXIDE 24 mmol/L (22-30); CHLORIDE 100 mmol/L (98-107); GLUCOSE 221 mg/dL (75-110); POTASSIUM 3.7 mmol/L (3.6-5.0); TOTAL PROTEIN 7.3 g/dL (6.3-8.2)
--- NOTE | 2019-07-21 12:49 | ER Document Report ---
ED General - General Chief Complaint: High Blood Sugar Stated Complaint: WEAKNESS Time Seen by Provider: 07/21/19 11:48 Primary Care Provider: KATIE CHAN MD [Primary Care Provider] - Follow up as needed Mode of Arrival: Ambulatory TRAVEL OUTSIDE OF THE [place] IN LAST 30 DAYS: No COUNTRY TRAVELED TO/FROM: [facility] Notes: 28-year-old female insulin-dependent diabetic presents with polyuria, weakness, not feeling well and elevated blood sugar. Blood sugars been elevated for the last week. States she took some Humalog insulin this morning before coming in. She ran out of her Lantus insulin 2 weeks ago. 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 No vomiting, no diarrhea, no chest pain. Moderate intensity, exacerbated by exertion. Moderate intensity. No other modifying factors, no other associated symptoms, no other provocative or palliative factors. - Related Data Allergies/Adverse Reactions: No Known Allergies Allergy (Verified 07/21/19 11:10) Past Medical History - General Information source: Patient - Social History Smoking Status: Former Smoker Family History: DM Patient has suicidal ideation: No Patient has homicidal ideation: No Pulmonary Medical History: Denies: Hx Tuberculosis Endocrine Medical History: Reports: Hx Diabetes Mellitus Type 1 Renal/ Medical History: Denies: Hx Peritoneal Dialysis Psychiatric Medical History: Denies: Hx Depression Past Surgical History: Denies: Hx Pacemaker - Immunizations Immunizations up to date: No Hx Diphtheria, Pertussis, Tetanus Vaccination: Yes Review of Systems - Review of Systems Notes: Review of systems as in the history of present illness, otherwise negative x 10 systems. Physical Exam - Vital signs Vitals: Temp Pulse Resp BP Pulse Ox 98.3 F 87 16 125/73 96 07/21/19 11:08 07/21/19 11:08 07/21/19 11:08 07/21/19 11:08 07/21/19 11:08 - Notes Notes: General: Well developed . Dry mucosa HEENT: Normocephalic, atraumatic. Pupils equal round reactive to light. No JVD. Chest: No trauma. Respiratory: Good air exchange, normal excursion. Cardiac: Regular rhythm. No murmurs or gallops. Abdomen: Soft, benign. Nondistended. Nontender. Back: No asymmetry or gross abnormality. Motor: Grossly normal power and tone. Neurologic: Alert, nonfocal. Cranial nerves II-12 are intact. Sensation intact. Vascular: Well perfused. Normal peripheral pulses. Skin: No petechiae or purpura. Course - Re-evaluation Re-evalutation: 07/21/19 12:47 28-year-old female with the after mentioned symptoms, concerning for underlying DKA. May be simple hypoglycemia, has associated clinical dehydration. Plan proceed with labs, fluids, reassess. Labs reviewed, CBC unremarkable, chemistries show modest hyperglycemia, bicarb is normal, pH is normal, mild glycosuria and ketonuria. Normal anion gap. Patient does not have any firm evidence to support evidence of diabetic keto acidosis. She feels much better after the after mentioned therapy. We are going to have the patient seen to help in any way we can to assist with acquisition of her Lantus insulin. She will return if worsening, follow-up as discussed. - Vital Signs Vital signs: Temp Pulse Resp BP Pulse Ox 98.3 F 87 16 125/73 97 07/21/19 11:08 07/21/19 11:08 07/21/19 11:08 07/21/19 11:08 07/21/19 11:55 - Laboratory Result Diagrams: 07/21/19 11:33 07/21/19 11:33 Laboratory results interpreted by me: 07/21/19 07/21/19 07/21/19 11:17 11:33 11:33 MCH 26.1 L RDW 14.9 H Sodium 136.0 L Creatinine 0.48 L Glucose 221 H POC Glucose 210 H Alkaline Phosphatase 149 H Urine Protein Urine Glucose (UA) Urine Ketones Ur Leukocyte Esterase 07/21/19 11:33 MCH RDW Sodium Creatinine Glucose POC Glucose Alkaline Phosphatase Urine Protein 30 H Urine Glucose (UA) >=500 H Urine Ketones 20 H Ur Leukocyte Esterase TRACE H Discharge - Discharge Clinical Impression: Hyperglycemia, Dehydration Condition: Stable Disposition: HOME, SELF-CARE Instructions: Hyperglycemia ([facility]), Dehydration ([facility]) Referrals: KATIE CHAN MD [Primary Care Provider] - Follow up tomorrow
[2019-07-21 14:30] VITALS: BP 112/74
--- NOTE | 2019-07-21 19:58 | EKG REPORT ---
SEVERITY:- NORMAL ECG - SINUS RHYTHM : Confirmed by: Kimberlee Reid MD 21-Jul-2019 19:57:48
== END 2019-07-21 14:14 | disposition home or self-care (01) ==
LOC: ER 11:01
DX: E10.65 Type 1 diabetes mellitus with hyperglycemia (principal); E86.0 Dehydration; R53.1 Weakness; R35.8 Other polyuria; R35.0 Frequency of micturition; Z87.891 Personal history of nicotine dependence
CPT/HCPCS: 93005; 99285; 96360; 96361; 36415; 82962; 84703; 85025; 80053; 81001; 82803; 93010; J7030

== ENCOUNTER 2019-09-04 17:45 | Emergency (ER) | payer BC ==
[2019-09-04] MEDS ORDERED: IBUPROFEN 600 MG TABLET PO ONE (17:56)
[2019-09-04] MEDS ORDERED: ACETAMINOPHEN 325 MG TABLET PO ONE (17:56)
[2019-09-04] MEDS ORDERED: OXYCODONE-ACETAMINOPHEN 5-325 MG TABLET PO ONE (17:56)
[2019-09-04] MEDS ORDERED: CEPHALEXIN 500 MG CAPSULE PO ONE (17:57)
[2019-09-04] MEDS ORDERED: LIDOCAINE 1% INJ (10 MG/ML) 10 ML MDV INJ ONE (18:06)
--- NOTE | 2019-09-04 18:06 | ER Document Report ---
ED Skin Rash/Insect Bite/Abscs - General Chief Complaint: Abscess Stated Complaint: ABSCESS/BACK OF RIGHT LEG Time Seen by Provider: 09/04/19 17:50 Primary Care Provider: KATIE CHAN MD [NO LOCAL MD] - Follow up as needed Notes: 29-year-old female with type 1 diabetes presents to the emergency department with an abscess on the back of her left leg. Boyfriend gave history and states that it started as a pimple as ago and she tried to "pop it" but it got significantly worse in the interval time. Patient states it is acutely tender to palpation and she cannot bear any weight on it or sit on it. Denies fevers or chills, denies nausea or vomiting, denies acute leg weakness, does state there is surrounding erythema. TRAVEL OUTSIDE OF THE [place] IN LAST 30 DAYS: No COUNTRY TRAVELED TO/FROM: [place] - Related Data Allergies/Adverse Reactions: No Known Allergies Allergy (Verified 09/04/19 17:49) Home Medications: novolin. humalog Past Medical History - Social History Smoking Status: Never Smoker Chew tobacco use (# tins/day): No Frequency of alcohol use: None Drug Abuse: None Family History: DM Patient has suicidal ideation: No Patient has homicidal ideation: No Pulmonary Medical History: Denies: Hx Tuberculosis Endocrine Medical History: Reports: Hx Diabetes Mellitus Type 1 Renal/ Medical History: Denies: Hx Peritoneal Dialysis Psychiatric Medical History: Denies: Hx Depression Past Surgical History: Denies: Hx Pacemaker - Immunizations Immunizations up to date: No Hx Diphtheria, Pertussis, Tetanus Vaccination: Yes Review of Systems - Review of Systems Constitutional: See HPI EENT: No symptoms reported Cardiovascular: No symptoms reported Respiratory: No symptoms reported Gastrointestinal: See HPI Genitourinary: No symptoms reported Female Genitourinary: No symptoms reported Musculoskeletal: See HPI Skin: See HPI Hematologic/Lymphatic: No symptoms reported Neurological/Psychological: No symptoms reported Physical Exam - Notes Notes: PHYSICAL EXAMINATION: Reviewed vital signs and charting by RN GENERAL: Alert, interacts well. No acute distress. HEAD: Normocephalic, atraumatic. EYES: Pupils equal and round. Extraocular movements intact. ENT: Oral mucosa moist, tongue midline. NECK: Full range of motion. Trachea midline. LUNGS: Clear to auscultation bilaterally, no wheezes, rales, or rhonchi. No respiratory distress. HEART: Regular rate and rhythm. No murmur ABDOMEN: soft, non-tender. No distention. Bowel sounds present EXTREMITIES: Moves all 4 extremities spontaneously. No edema, No cyanosis. PSYCH: Normal affect, normal mood. SKIN: Warm, dry, normal turgor. Abscess on the posterior proximal right lower extremity with a large area of induration approximately 6 cm x 6 cm with surrounding erythema consistent with cellulitis Course - Re-evaluation Re-evalutation: 09/04/19 18:10 Well-appearing and nontoxic. Symptoms consistent with an abscess with underlying cellulitis. I am going to perform an incision and drainage and cover her for cellulitis with Bactrim and Keflex. 09/04/19 19:05 An incision and drainage was performed. Patient received analgesia prior to the procedure. Lidocaine 1% without epinephrine used for local anesthesia. An incision was made and there was a small amount of purulent discharge expressed, it was packed with 1/4 inch iodoform packing and the wound was dressed. A wound culture was sent. Stable for discharge per Procedures - Incision and Drainage Right Upper Leg Type: Simple Anesthetic type: 1% Lidocaine Blade size: 11 I&D procedure: Shurclens applied, Sterile dressing applied Incision Method: Incision made by scalpel Discharge - Discharge Clinical Impression: Abscess, Cellulitis and abscess of leg Condition: Good Disposition: HOME, SELF-CARE Instructions: Abscess ([facility]), Cephalexin ([facility]), Post Incision and Drainage, Trimethoprim-Sulfa ([facility]) Additional Instructions: You were seen for an abscess that required drainage. Please clean this area with soap and water twice daily and apply a topical antibiotic. Dress the area after each cleaning. Please return if you develop fever, vomiting, the pain at the site worsens, you notice spreading redness from the area, or you have any other symptoms that are concerning to you. Prescriptions: Sulfamethoxazole/Trimethoprim [Bactrim Ds Tablet] 1 each PO BID #14 tablet Cephalexin Monohydrate [Keflex 500 mg Capsule] 500 mg PO Q8H 7 Days capsule Referrals: KATIE CHAN MD [NO LOCAL MD] - Follow up as needed
[2019-09-04] MEDS ORDERED: HYDROCODONE/ACETAMINOPHEN 5-325 MG (6 TAB/ER DISP) PO PRN (19:05)
[2019-09-04 19:22] VITALS: BP 144/77
== END 2019-09-04 19:45 | disposition home or self-care (01) ==
LOC: ER 17:45
DX: L02.415 Cutaneous abscess of right lower limb (principal); E10.9 Type 1 diabetes mellitus without complications
CPT/HCPCS: 87070; 87205; 87075; 87077; 10060; A6266; 87186; 99282

== ENCOUNTER 2019-09-06 11:03 | Emergency (ER) | payer BC ==
[2019-09-06 11:20] VITALS: BP 131/83
--- NOTE | 2019-09-06 11:31 | ER Document Report ---
HPI - HPI Time Seen by Provider: 09/06/19 11:24 Pain Level: 4 Context: Patient is a 29-year-old female who presents emergency department for an abscess wound recheck. Patient states that she was placed on Bactrim and Keflex. She denies any fevers, body aches, chills, or any other symptoms. She states that there is minimal pain just due to the location of where the abscess was. Abscesses on her right posterior thigh. - CONSTITUTIONAL Constitutional: DENIES: Fever, Chills - EENT EENT: DENIES: Sore Throat, Ear Pain - NEURO Neurology: DENIES: Headache, Weakness - CARDIOVASCULAR Cardiovascular: DENIES: Chest pain - RESPIRATORY Respiratory: DENIES: Trouble Breathing, Coughing - GASTROINTESTINAL Gastrointestinal: DENIES: Abdominal Pain - REPRODUCTIVE Reproductive: DENIES: : - MUSCULOSKELETAL Musculoskeletal: DENIES: Extremity pain - DERM Skin Problems: Pustule - Right posterior thigh; packing noted. Past Medical History - General Information source: Patient - Social History Smoking Status: Current Some Day Smoker Frequency of alcohol use: Occasional Drug Abuse: None Family History: DM Patient has suicidal ideation: No Patient has homicidal ideation: No Pulmonary Medical History: Denies: Hx Tuberculosis Endocrine Medical History: Reports: Hx Diabetes Mellitus Type 1 Renal/ Medical History: Denies: Hx Peritoneal Dialysis Psychiatric Medical History: Denies: Hx Depression Past Surgical History: Denies: Hx Pacemaker - Immunizations Immunizations up to date: No Hx Diphtheria, Pertussis, Tetanus Vaccination: Yes Vertical Provider Document - CONSTITUTIONAL Agree With Documented VS: Yes Exam Limitations: No Limitations General Appearance: No Apparent Distress - INFECTION CONTROL TRAVEL OUTSIDE OF THE [place] IN LAST 30 DAYS: No COUNTRY TRAVELED TO/FROM: [place] - HEENT HEENT: Atraumatic, Normocephalic, PERRLA - RESPIRATORY Respiratory: No Respiratory Distress - CARDIOVASCULAR Cardiovascular: Regular Rate - MUSCULOSKELETAL/EXTREMETIES Musculoskeletal/Extremeties: FROM, Tender - NEURO Level of Consciousness: Awake, Alert, Appropriate Motor/Sensory: No Motor Deficit, No Sensory Deficit - DERM Integumentary: Warm, Dry, Abscess - open with packing, mild surrounding erythema. Course - Re-evaluation Re-evalutation: 09/06/19 12:02 Patient's wound was unpacked and repacked by myself. Patient has still had some purulent drainage noted. I did not want to leave packing out, as the patient still had the drainage and I did not want the purulent drainage to get trapped inside the wound. The patient is also diabetic. Patient states that she started her antibiotics today. I have advised the patient to follow-up with her primary care provider in 2 days to have the wound reevaluated. She is in agreement with this plan. Follow-up precautions were given. Verbal discharge instructions were given to the patient. They verbalized understanding. They are stable for discharge. - Vital Signs Vital signs: Temp Pulse Resp BP Pulse Ox 98.4 F 87 131/83 H 100 09/06/19 11:19 1819 11:19 19 11:19 09/06/19 11:19 Discharge - Discharge Clinical Impression: Abscess, Encounter for wound re-check Condition: Stable Disposition: HOME, SELF-CARE Instructions: Abscess ([facility]) Additional Instructions: You were seen today in the emergency department to have your wound rechecked. The packing was pulled out and new packing was placed. Please follow-up with your primary care provider in the next 48 hours. Please have them reevaluate your abscess. Please continue to take the antibiotics you were prescribed. You are also being sent home with the same pain medication you received when you were here for your initial visit. He can take 1 tablet every 4-6 hours as needed for your pain. Please continue ibuprofen 600 mg every 6 hours for pain and swelling. Forms: Return to Work Referrals: DOMENIC CALDERA MD [ACTIVE STAFF] - 09/08/19
[2019-09-06] MEDS ORDERED: HYDROCODONE/ACETAMINOPHEN 5-325 MG TABLET PO ONE (12:04)
[2019-09-06] MEDS ORDERED: HYDROCODONE/ACETAMINOPHEN 5-325 MG (6 TAB/ER DISP) PO PRN (12:04)
== END 2019-09-06 12:18 | disposition home or self-care (01) ==
LOC: ER 11:03
DX: L02.415 Cutaneous abscess of right lower limb (principal); F17.200 Nicotine dependence, unspecified, uncomplicated; E10.9 Type 1 diabetes mellitus without complications
CPT/HCPCS: 99282

== ENCOUNTER 2019-09-17 12:31 | Emergency (ER) | payer BC ==
--- NOTE | 2019-09-17 12:44 | ER Document Report ---
ED Medical Screen (RME) - General Stated Complaint: MENSTRAL ISSUES Time Seen by Provider: 09/17/19 12:41 Primary Care Provider: VIRGINIA HARLEY MD [Primary Care Provider] - Follow up as needed Mode of Arrival: Ambulatory Information source: Patient Notes: 29-year-old female presented to ED for vaginal bleeding. She states her menstrual cycle started on 07 September and has not stopped yet. States she passed a large clot yesterday and another one today. Denies any pain or discomfort. She is not on any control. She states she has not taken a test. She states her menstrual cycles have been regular. I have greeted and performed a rapid initial assessment of this patient. A comprehensive ED assessment and evaluation of the patient, analysis of test results and completion of medical decision making process will be conducted by an additional ED providers. TRAVEL OUTSIDE OF THE [place] IN LAST 30 DAYS: No COUNTRY TRAVELED TO/FROM: [place] - Related Data Allergies/Adverse Reactions: No Known Allergies Allergy (Verified 09/17/19 12:41) Past Medical History Pulmonary Medical History: Denies: Hx Tuberculosis Endocrine Medical History: Reports: Hx Diabetes Mellitus Type 1 Renal/ Medical History: Denies: Hx Peritoneal Dialysis Psychiatric Medical History: Denies: Hx Depression Past Surgical History: Denies: Hx Pacemaker - Immunizations Immunizations up to date: No Hx Diphtheria, Pertussis, Tetanus Vaccination: Yes Physical Exam - Vital signs Vitals: Temp Pulse Resp BP Pulse Ox 97.8 F 82 20 146/85 H 97 09/17/19 12:36 09/17/19 12:36 09/17/19 12:36 09/17/19 12:36 09/17/19 12:36 Course - Vital Signs Vital signs: Temp Pulse Resp BP Pulse Ox 97.8 F 82 20 146/85 H 97 09/17/19 12:36 09/17/19 12:36 09/17/19 12:36 09/17/19 12:36 09/17/19 12:36 Doctor's Discharge - Discharge Referrals: VIRGINIA HARLEY MD [Primary Care Provider] - Follow up as needed
[2019-09-17 13:21] LABS: ABSOLUTE BASOPHILS # (AUTO) 0.1 10^3/uL (0.0-0.2); ABSOLUTE EOSINOPHILS # (AUTO) 0.1 10^3/uL (0.0-0.6); ABSOLUTE LYMPHOCYTES (AUTO) 1.7 10^3/uL (0.5-4.7); ABSOLUTE MONOCYTES (AUTO) 0.4 10^3/uL (0.1-1.4); ABSOLUTE NEUT (AUTO) 7.3 10^3/uL (1.7-8.2); BASOPHILS % (AUTO) 0.8 % (0-2); EOSINOPHILS % (AUTO) 1.3 % (0-6); HEMATOCRIT 39.7 % (36.0-47.0); HEMOGLOBIN 12.8 g/dL (12.0-15.5); MEAN CORPUSCULAR HEMOGLOBIN 26.8 pg (27.0-33.4); MEAN CORPUSCULAR HGB CONC 32.3 g/dL (32.0-36.0); MEAN CORPUSCULAR VOLUME 83 fl (80-97); MONOCYTES % (AUTO) 4.5 % (3-13); PLATELET COUNT 365 10^3/uL (150-450); RED BLOOD COUNT 4.79 10^6/uL (3.72-5.28); SEGMENTED NEUTROPHILS % (AUTO) 75.4 % (42-78); TOTAL CELLS COUNTED % (AUTO) 100 %; WHITE BLOOD COUNT 9.6 10^3/uL (4.0-10.5)
[2019-09-17 13:24] LABS: APPEARANCE,URINE CLEAR; BILIRUBIN,URINE NEGATIVE (NEGATIVE); COLOR,URINE STRAW; GLUCOSE, URINE >=500 mg/dL (NEGATIVE); KETONES,URINE 20 mg/dL (NEGATIVE); PROTEIN,URINE NEGATIVE (NEGATIVE); URINE SPECIFIC GRAVITY 1.028; UROBILINOGEN,URINE NEGATIVE mg/dL (<2.0)
[2019-09-17 13:46] LABS: ALBUMIN 4.2 g/dL (3.5-5.0); ALKALINE PHOSPHATASE 181 U/L (38-126); ASPARTATE AMINO TRANSFERASE 43 U/L (14-36); BILIRUBIN,DIRECT 0.1 mg/dL (0.0-0.4); BILIRUBIN,TOTAL 0.6 mg/dL (0.2-1.3); BLOOD UREA NITROGEN 17 mg/dL (7-20); CALCIUM 9.4 mg/dL (8.4-10.2); POTASSIUM 4.4 mmol/L (3.6-5.0); TOTAL PROTEIN 7.5 g/dL (6.3-8.2)
[2019-09-17 13:51] LABS: CARBON DIOXIDE 18 mmol/L (22-30); CHLORIDE 95 mmol/L (98-107)
--- NOTE | 2019-09-17 13:55 | ER Document Report ---
ED GI/ - General Chief Complaint: Vaginal Bleeding Stated Complaint: MENSTRAL ISSUES Time Seen by Provider: 09/17/19 12:41 Primary Care Provider: VIRGINIA HARLEY MD [Primary Care Provider] - Follow up as needed Mode of Arrival: Ambulatory Notes: Patient is a 29-year-old female who presents the emergency department with a chief complaint of vaginal bleeding. Patient reports she started her menstrual cycle September 07 as expected and reports she has not stopped bleeding since. Patient reports her normal menstrual cycles about 5 to 6 days and she is on day 10 currently. Patient reports that she is sexually active and has not taken a test at home. Patient denies pain or vaginal discharge prior to the bleeding. Patient denies use of control. Patient reports she is not having any cramping. Patient denies nausea, vomiting or diarrhea. Patient denies fever. Patient reports yesterday she passed a quarter size clot and once again today. Patient reports she is not soaking through pads or tampons and at times will have a heavy to light vaginal bleeding. Patient denies urinary symptoms. TRAVEL OUTSIDE OF THE [place] IN LAST 30 DAYS: No COUNTRY TRAVELED TO/FROM: [place] - Related Data Allergies/Adverse Reactions: No Known Allergies Allergy (Verified 09/17/19 12:41) Past Medical History - General Information source: Patient Last Menstrual Period: 09/07/19 - Social History Smoking Status: Current Some Day Smoker Chew tobacco use (# tins/day): No Frequency of alcohol use: Occasional Drug Abuse: None Lives with: Spouse/Significant other Family History: DM Patient has suicidal ideation: No Patient has homicidal ideation: No - Past Medical History Cardiac Medical History: Reports: None Pulmonary Medical History: Reports: None Denies: Hx Tuberculosis EENT Medical History: Reports: None Neurological Medical History: Reports: None Endocrine Medical History: Reports: Hx Diabetes Mellitus Type 1 Renal/ Medical History: Reports: None. Denies: Hx Peritoneal Dialysis Malignancy Medical History: Reports: None GI Medical History: Reports: None Musculoskeletal Medical History: Reports None Skin Medical History: Reports None Psychiatric Medical History: Reports: None Denies: Hx Depression Traumatic Medical History: Reports: None Infectious Medical History: Reports: None Surgical Hx: Negative Past Surgical History: Denies: Hx Pacemaker - Immunizations Immunizations up to date: No Hx Diphtheria, Pertussis, Tetanus Vaccination: Yes Review of Systems - Review of Systems Constitutional: No symptoms reported EENT: No symptoms reported Cardiovascular: No symptoms reported Respiratory: No symptoms reported Gastrointestinal: No symptoms reported Genitourinary: No symptoms reported Female Genitourinary: See HPI Musculoskeletal: No symptoms reported Skin: No symptoms reported Hematologic/Lymphatic: No symptoms reported Neurological/Psychological: No symptoms reported Physical Exam - Vital signs Vitals: Temp Pulse Resp BP Pulse Ox 97.8 F 82 20 146/85 H 97 09/17/19 12:36 09/17/19 12:36 09/17/19 12:36 09/17/19 12:36 09/17/19 12:36 Interpretation: Normal - Notes Notes: GENERAL: Well-appearing, well-nourished and in no acute distress. HEAD: Atraumatic, normocephalic. EYES: Pupils equal round and reactive to light, extraocular movements intact, sclera anicteric, conjunctiva are normal. ENT: Nares patent, oropharynx clear without exudates. Moist mucous membranes. NECK: Normal range of motion, supple without lymphadenopathy or JVD. LUNGS: Breath sounds clear to auscultation bilaterally and equal. No wheezes rales or rhonchi. HEART: Regular rate and rhythm without murmurs, rubs or gallops. ABDOMEN: Soft, nontender, normoactive bowel sounds. No guarding, no rebound. No masses appreciated. BACK: No cervical, thoracic, lumbar midline tenderness. No saddle anesthesia, normal distal neurovascular exam. No CVA tenderness. GENITOURINARY: Deferred. EXTREMITIES: Normal range of motion, no pitting or edema. No clubbing or cyanosis. NEUROLOGICAL: Cranial nerves II through XII grossly intact. Normal speech, n ormal gait. PSYCH: Normal mood, normal affect. SKIN: Warm, Dry, normal turgor, no rashes or lesions noted. Course - Re-evaluation Re-evalutation: 09/17/19 14:25 Patient reports she is a type I diabetic and does take insulin regularly. Patient reports her sugars have been running in the 300s at home. Patient reports she does see Dr. Martin in [place] in regards to her diabetes but has not seen her in a while. Patient reports she has felt more dry and thirsty lately. Patient reports she is currently on antibiotics for recent I&D of an abscess to the right posterior thigh. Patient reports this is healing well and that there is no drainage. I did visualize the area which appears benign without significant erythema, drainage or edema. Pelvic examination was performed as documented. Patient's blood glucose 510. Will initiate an IV, IV fluids and obtain a VBG. 09/17/19 15:12 Patient's VBG is within normal limits. Patient receiving first liter of IV fluids. Will give a second liter to hydrate. Patient no acute distress and nontoxic-appearing. Plan is to repeat the blood glucose after the second liter of fluid. If the patient is below 300 we will discharge. Patient given strict instructions to follow-up with Dr. Martin on Friday so she can closely monitor her blood sugars. 09/17/19 16:42 Patient blood sugar is now 128. Patient reports feeling much better and more hydrated. Patient has urinated. Patient nontoxic-appearing. Will discharge. - Vital Signs Vital signs: Temp Pulse Resp BP Pulse Ox 97.8 F 82 20 146/85 H 97 09/17/19 12:36 09/17/19 12:36 09/17/19 12:36 09/17/19 12:36 09/17/19 12:36 - Laboratory Result Diagrams: 09/17/19 13:00 09/17/19 13:00 Laboratory results interpreted by me: 09/17/19 09/17/19 09/17/19 12:48 13:00 13:00 MCH 26.8 L RDW 15.0 H Sodium 132.9 L Chloride 95 L Carbon Dioxide 18 L Anion Gap 20 H Glucose 510 H* POC Glucose AST 43 H Alkaline Phosphatase 181 H Urine Glucose (UA) >=500 H Urine Ketones 20 H Urine Blood LARGE H 09/17/19 16:30 MCH RDW Sodium Chloride Carbon Dioxide Anion Gap Glucose POC Glucose 128 H AST Alkaline Phosphatase Urine Glucose (UA) Urine Ketones Urine Blood 09/17/19 15:11 Patient's labs did not show significant leukocytosis or anemia. Patient does have an elevated blood glucose of 510. Patient's BUN and creatinine are within normal limits. Patient's anion gap is 20. Patient's venous blood gas is normal without an acidosis present. Laboratory 09/17/19 09/17/19 09/17/19 12:48 13:00 13:00 WBC 9.6 RBC 4.79 Hgb 12.8 Hct 39.7 MCV 83 MCH 26.8 L MCHC 32.3 RDW 15.0 H Plt Count 365 Lymph % (Auto) 18.0 [place] % (Auto) 4.5 Eos % (Auto) 1.3 Baso % (Auto) 0.8 Absolute Neuts (auto) 7.3 Absolute Lymphs (auto) 1.7 Absolute Monos (auto) 0.4 Absolute Eos (auto) 0.1 Absolute Basos (auto) 0.1 Seg Neutrophils % 75.4 VBG pH VBG pCO2 VBG HCO3 VBG Base Excess Sodium 132.9 L Potassium 4.4 Chloride 95 L Carbon Dioxide 18 L Anion Gap 20 H BUN 17 Creatinine 0.60 Est GFR ( Amer) > 60 Est GFR (MDRD) Non-Af > 60 Glucose 510 H* Calcium 9.4 Total Bilirubin 0.6 Direct Bilirubin 0.1 Neonat Total Bilirubin Not Reportable Neonat Direct Bilirubin Not Reportable Neonat Indirect Bili Not Reportable AST 43 H ALT 41 Alkaline Phosphatase 181 H Total Protein 7.5 Albumin 4.2 Beta HCG, Quant < 2.39 Total Beta HCG NEGATIVE Urine Color STRAW Urine Appearance CLEAR Urine pH 6.0 Ur Specific [place] 1.028 Urine Protein NEGATIVE Urine Glucose (UA) >=500 H Urine Ketones 20 H Urine Blood LARGE H Urine Nitrite (Reflex) NEGATIVE Urine Bilirubin NEGATIVE Urine Urobilinogen NEGATIVE Leukocyte Esterase Rfl NEGATIVE Urine RBC (Auto) 1 Urine Bacteria (Auto) TRACE Urine WBC (Reflex) < 1 Urine Mucus (Auto) RARE Urine Ascorbic Acid NEGATIVE Bacteria (Wet Prep) Trichomonas (Wet Prep) Vaginal WBC Vaginal Yeast 09/17/19 09/17/19 14:22 14:32 WBC RBC Hgb Hct MCV MCH MCHC RDW Plt Count Lymph % (Auto) [place] % (Auto) Eos % (Auto) Baso % (Auto) Absolute Neuts (auto) Absolute Lymphs (auto) Absolute Monos (auto) Absolute Eos (auto) Absolute Basos (auto) Seg Neutrophils % VBG pH 7.39 VBG pCO2 35.3 VBG HCO3 20.6 VBG Base Excess -3.6 Sodium Potassium Chloride Carbon Dioxide Anion Gap BUN Creatinine Est GFR ( Amer) Est GFR (MDRD) Non-Af Glucose Calcium Total Bilirubin Direct Bilirubin Neonat Total Bilirubin Neonat Direct Bilirubin Neonat Indirect Bili AST ALT Alkaline Phosphatase Total Protein Albumin Beta HCG, Quant Total Beta HCG Urine Color Urine Appearance Urine pH Ur Specific [place] Urine Protein Urine Glucose (UA) Urine Ketones Urine Blood Urine Nitrite (Reflex) Urine Bilirubin Urine Urobilinogen Leukocyte Esterase Rfl Urine RBC (Auto) Urine Bacteria (Auto) Urine WBC (Reflex) Urine Mucus (Auto) Urine Ascorbic Acid Bacteria (Wet Prep) 3+ BACTERIA SEEN Trichomonas (Wet Prep) NO TRICHOMONAS SEEN Vaginal WBC FEW WBCS SEEN Vaginal Yeast NO YEAST SEEN Procedures - Pelvic Exam Pelvic exam Time completed: 14:20 Cultures obtained: Yes Wet prep obtained: Yes Foreign body removed: No Bimanual exam performed: No Notes: 09/17/19 14:27 Patient's examination of the external genitalia was unremarkable without edema, lesions or erythema. Patient tolerated the insertion of the speculum well. I was able to visualize the cervix. There was a small amount of dark-colored blood noted within the vaginal vault and around the cervix. This was removed with big cotton swabs. Specimens were obtained. Discharge - Discharge Clinical Impression: Vaginal bleeding, Hyperglycemia, Dehydration, Bacterial vaginosis Type 1 diabetes Qualifiers: Diabetes mellitus complication status: with hyperglycemia Qualified Code(s): E10.65 - Type 1 diabetes mellitus with hyperglycemia Condition: Stable Disposition: HOME, SELF-CARE Additional Instructions: *Today he was seen in the emergency department for vaginal bleeding. Your pelvic examination was unremarkable but did show that you have a bacterial vaginosis. This is a bacterial infection. You will be placed on oral antibiotics. The antibiotic used to treat bacterial vaginosis is called Flagyl. Do not drink alcohol on this medication as it can make you violently ill and vomit. Was also noted that you have an elevated blood glucose. Your initial glucose was 510 and after 2 L fluids this has improved to 128. You are not acidotic at this time and do not appear to be in diabetic ketoacidosis. We have adequately giving you hydration. It is very important to continue using your insulin at home, limit your carbs and frequently check your blood glucose. Please follow-up with Dr. Martin on Friday she may need alteration in your dosage of insulin. Diabetes You have an abnormally high blood sugar, suspicious for diabetes. Not all high blood sugar requires long-term treatment. High blood sugar can be due to medications, , or the stress of illness. (These cases are "borderline diabetes.") If the doctor feels your high blood sugar might get better with time, you may not require treatment now. You will be scheduled for further evaluation. It's very important that you follow through. Uncontrolled high blood sugar leads to early heart disease, strokes, nerve damage, eye damage, and kidney damage. All diabetics should follow a diet designed to control the blood sugar. Overweight diabetics should exercise regularly and lose weight. If this is not sufficient to control the blood sugar, pills or insulin shots are necessary. Younger people who develop diabetes almost always require insulin daily. Home testing of blood sugars or urine sugar is required. Diabetic teaching is available to help you figure insulin doses and monitor the blood sugar. Call the physician if there is faintness, excess sleepiness, or very rapid breathing. If hypoglycemia (LOW blood sugar) develops, symptoms are shakiness, weakness, sweating, and confusion. In this case, you should eat or drink something with sugar at once. Vaginosis, Bacterial Your exam shows you have bacterial vaginosis. This condition is due to an overgrowth of bacteria in the vagina. Symptoms may include vaginal itching or pain, a smelly discharge, and sometimes burning with urination. Normally this is not transmitted by sexual contact. Vaginosis can be treated with oral or topical antibiotics. Metronidazole (Flagyl) pills are usually effective. Topical vaginal creams include Cleocin and Metro-Gel. You should avoid sexual contact until your symptoms are all better. Call the doctor if you develop pelvic pain, fever, or problems with urination, or if you don't improve as expected. Prescriptions: Metronidazole [Flagyl 500 mg Tablet] 500 mg PO BID 7 Days #14 tablet Referrals: VIRGINIA HARLEY MD [Primary Care Provider] - Follow up as needed
[2019-09-17 14:09] LABS: GLUCOSE 510 mg/dL (75-110)
[2019-09-17 14:10] LABS: ANION GAP 20 (5-19)
[2019-09-17] MEDS ORDERED: NORMAL SALINE 1000 ML 1,000 ML IV ONE ×2 (14:25→15:10)
[2019-09-17 14:37] LABS: BACTERIA (WET MOUNT) 3+ BACTERIA SEEN; T.VAGINALIS (WET MOUNT) NO TRICHOMONAS SEEN; WBCS (WET MOUNT) FEW WBCS SEEN; YEAST (WET MOUNT) NO YEAST SEEN
[2019-09-17 15:01] LABS: VENOUS BLOOD BASE EXCESS -3.6 mmol/L; VENOUS BLOOD HCO3 20.6 mmol/L (20-32); VENOUS BLOOD PCO2 35.3 mmHg (35-63); VENOUS BLOOD PH 7.39 (7.30-7.42)
[2019-09-17 16:03] LABS: CHLAM PCR NOT DETECTED (NOT DETECT)
[2019-09-17 17:11] VITALS: BP 120/80
== END 2019-09-17 17:11 | disposition home or self-care (01) ==
LOC: ER 12:31
DX: N93.9 Abnormal uterine and vaginal bleeding, unspecified (principal); N76.0 Acute vaginitis; B96.89 Other specified bacterial agents as the cause of diseases classified elsewhere; E10.65 Type 1 diabetes mellitus with hyperglycemia; Z79.4 Long term (current) use of insulin; E86.0 Dehydration; F17.200 Nicotine dependence, unspecified, uncomplicated; L02.415 Cutaneous abscess of right lower limb; Z98.890 Other specified postprocedural states
CPT/HCPCS: 99284; 96360; 96361; 36415; 87210; 82962; 84702; 85025; 80053; 81001; 87491; 87591; 82803; J7030

== ENCOUNTER 2020-09-21 14:45 | Outpatient (CLI) | payer MEDICAID ==
--- NOTE | 2020-09-21 15:43 | Non Stress Test Report ---
Non Stress Test Datetime Report Generated by CPN: 09/21/2020 15:43 DEMOGRAPHIC Test Number: 2 Test Number: 1 EGA NST: 39.6 INDICATION Indication for Study (NST) Other: NR in office VITAL SIGNS Temperature - NST: 97.9 Pulse - NST: 99 RESP - NST: 17 NBPSYS NST: 138 NBPDIA NST: 79 MONITORING Monitor Explained: Monitor Explained; Test Explained; Patient Verbalized Understanding Time on Monitor: 09/21/2020 15:10 Time off Monitor: 09/21/2020 15:31 NST Duration: 21 NST INTERVENTIONS NST Interventions: None Physician Notified NST: K. Ariza, CNM BABY A: [id number] BABY A Movement : Present Contraction Frequency : 0 FHR Baseline : 135 Accelerations : 15X15 Decelerations : None Variability : Moderate 6-25bpm NST Review: Meets Criteria for Reactive NST NST Review and Verified By : sautry NST Results: Reactive NST REPORT Report Trigger: Send Report
== END 2020-09-21 15:43 | disposition home or self-care (01) ==
LOC: LC 14:45
PROVIDERS: ATTEND Obstetrics & Gynecology
DX: O24.913 Unspecified diabetes mellitus in pregnancy, third trimester (principal); Z79.4 Long term (current) use of insulin; Z3A.39 39 weeks gestation of pregnancy
CPT/HCPCS: 59025; 82962; 94760

== ENCOUNTER 2020-10-12 01:36 | Emergency (ER) | payer MEDICAID ==
[2020-10-12 02:44] LABS: ABSOLUTE BASOPHILS # (AUTO) 0.1 10^3/uL (0.0-0.2); ABSOLUTE EOSINOPHILS # (AUTO) 0.2 10^3/uL (0.0-0.6); ABSOLUTE LYMPHOCYTES (AUTO) 1.9 10^3/uL (0.5-4.7); ABSOLUTE MONOCYTES (AUTO) 0.7 10^3/uL (0.1-1.4); ABSOLUTE NEUT (AUTO) 4.4 10^3/uL (1.7-8.2); BASOPHILS % (AUTO) 1.7 % (0-2); EOSINOPHILS % (AUTO) 3.3 % (0-6); HEMATOCRIT 40.2 % (36.0-47.0); HEMOGLOBIN 13.3 g/dL (12.0-15.5); LYMPHOCYTES % (AUTO) 25.7 % (13-45); MEAN CORPUSCULAR HEMOGLOBIN 26.1 pg (27.0-33.4); MEAN CORPUSCULAR VOLUME 79 fl (80-97); PLATELET COUNT 269 10^3/uL (150-450); RED BLOOD COUNT 5.09 10^6/uL (3.72-5.28); RED CELL DISTRIBUTION WIDTH 16.2 % (11.5-14.0); SEGMENTED NEUTROPHILS % (AUTO) 60.3 % (42-78); TOTAL CELLS COUNTED % (AUTO) 100 %; WHITE BLOOD COUNT 7.2 10^3/uL (4.0-10.5)
[2020-10-12 02:54] LABS: ALCOHOL < 10 mg/dL (NONE DETECTED); ALKALINE PHOSPHATASE 97 U/L (38-126); ANION GAP 11 (5-19); ASPARTATE AMINO TRANSFERASE 29 U/L (14-36); BILIRUBIN,DIRECT 0.2 mg/dL (0.0-0.4); BILIRUBIN,TOTAL 0.5 mg/dL (0.2-1.3); BLOOD UREA NITROGEN 17 mg/dL (7-20); CALCIUM 9.6 mg/dL (8.4-10.2); CARBON DIOXIDE 26 mmol/L (22-30); CHLORIDE 105 mmol/L (98-107); GLUCOSE 140 mg/dL (75-110); TOTAL PROTEIN 7.3 g/dL (6.3-8.2)
[2020-10-12 03:45] LABS: APPEARANCE,URINE CLEAR; BILIRUBIN,URINE NEGATIVE (NEGATIVE); COLOR,URINE YELLOW; GLUCOSE, URINE NEGATIVE (NEGATIVE); KETONES,URINE NEGATIVE (NEGATIVE); LEUKOCYTE ESTERASE,URINE LARGE (NEGATIVE); NITRITE,URINE NEGATIVE (NEGATIVE); PROTEIN,URINE 30 mg/dL (NEGATIVE); URINE SPECIFIC GRAVITY 1.018; UROBILINOGEN,URINE NEGATIVE mg/dL (<2.0)
[2020-10-12 03:57] LABS: URINE AMPHETAMINES SCREEN NEGATIVE; URINE BARBITURATES SCREEN NEGATIVE; URINE BENZODIAZEPINES SCREEN NEGATIVE; URINE COCAINE SCREEN NEGATIVE; URINE MARIJUANA (THC) SCREEN NEGATIVE; URINE METHADONE SCREEN NEGATIVE; URINE PHENCYCLIDINE SCREEN NEGATIVE
--- NOTE | 2020-10-12 05:29 | ER Document Report ---
ED General - General Chief Complaint: Low Blood Sugar Stated Complaint: BLOOD SUGAR ISSUE Time Seen by Provider: 10/12/20 02:30 Primary Care Provider: HUSSEIN HENDRICKSON MD [COMMUNITY BASED STAFF] - Follow up as needed HANNAH MCCLAIN FNP [NO LOCAL MD] - Follow up as needed Mode of Arrival: Medic Information source: Patient Notes: 30-year-old female patient with history of type 1 diabetes presenting to the emergency department with concern for hypoglycemic episode. Patient's boyfriend reports that patient last took her insulin at approximately 1:00 this afternoon. She did not have anything to eat after that. He states they were lying in bed, she started shaking and having rhythmic like a jerking movements that were intermittent. He states there was no incontinence. He denies any history of her having seizures in the past. He states when they finally checked her sugar it was in the 40s. They gave her some sugary drink. They then called 911. 911 gave additional glucose, they did not start an IV. On arrival to the emergency department patient is alert, oriented, answering all questions appropriately. TRAVEL OUTSIDE OF THE [place] IN LAST 30 DAYS: No - Related Data Allergies/Adverse Reactions: No Known Allergies Allergy (Verified 09/24/20 20:03) Home Medications: Insulin Past Medical History - General Information source: Patient - Social History Smoking Status: Former Smoker Frequency of alcohol use: None Drug Abuse: None Family History: DM Endocrine Medical History: Reports: Hx Diabetes Mellitus Type 1 Renal/ Medical History: Denies: Hx Peritoneal Dialysis - Immunizations Immunizations up to date: No Hx Diphtheria, Pertussis, Tetanus Vaccination: Yes Review of Systems - Review of Systems Constitutional: Other - Hypoglycemia, shaking -: Yes All other systems reviewed and negative Physical Exam - Vital signs Vitals: Pulse Ox 100 10/12/20 01:35 - Notes Notes: PHYSICAL EXAMINATION: GENERAL: Well-appearing, well-nourished and in no acute distress. HEAD: Atraumatic, normocephalic. Slight laceration noted to tongue consistent with bite phillip. No active bleeding. EYES: Pupils equal round and reactive to light, extraocular movements intact, conjunctiva are normal. ENT: Nares patent, oropharynx clear without exudates. Moist mucous membranes. NECK: Normal range of motion, supple without lymphadenopathy LUNGS: Breath sounds clear to auscultation bilaterally and equal. No wheezes rales or rhonchi. HEART: Regular rate and rhythm without murmurs ABDOMEN: Soft, nontender, nondistended abdomen. No guarding, no rebound. No masses appreciated. Female : deferred Musculoskeletal: Normal range of motion, no pitting or edema. No cyanosis. NEUROLOGICAL: Cranial nerves grossly intact. Normal speech, normal gait. Normal sensory, motor exams PSYCH: Normal mood, normal affect. SKIN: Warm, Dry, normal turgor, no rashes or lesions noted. Course - Re-evaluation Re-evalutation: Patient is alert, oriented, answering all questions appropriately. She has been held in the emergency department for several hours now and has had every 30 minute Accu-Cheks. She has not no additional episodes of hypoglycemia. She only takes insulin for her diabetes, she is not on any oral medications. - Vital Signs Vital signs: Temp Pulse Resp BP Pulse Ox 98.4 F 88 13 119/77 97 10/12/20 01:45 10/12/20 01:45 10/12/20 05:33 10/12/20 05:33 10/12/20 05:33 - Laboratory Results Result Diagrams: 10/12/20 01:50 10/12/20 01:50 Laboratory Results Interpreted: 10/12/20 10/12/20 10/12/20 01:49 01:50 01:50 MCV 79 L MCH 26.1 L RDW 16.2 H Glucose 140 H POC Glucose 139 H Urine Protein Urine Blood Ur Leukocyte Esterase 10/12/20 10/12/20 10/12/20 03:28 03:31 04:15 MCV MCH RDW Glucose POC Glucose 177 H 147 H Urine Protein 30 H Urine Blood MODERATE H Ur Leukocyte Esterase LARGE H 10/12/20 10/12/20 04:47 05:16 MCV MCH RDW Glucose POC Glucose 146 H 173 H Urine Protein Urine Blood Ur Leukocyte Esterase Critical Laboratory Results Reviewed: No Critical Results - Radiology Results Critical Radiology Results Reviewed: No Critical Results Discharge - Discharge Clinical Impression: Hypoglycemia, Seizure-like activity UTI (urinary tract infection) Qualifiers: Urinary tract infection type: site unspecified Hematuria presence: without hematuria Qualified Code(s): N39.0 - Urinary tract infection, site not specified Condition: Stable Disposition: HOME, SELF-CARE Additional Instructions: Hypoglycemia You have suffered an episode of hypoglycemia (low blood sugar). Typical symptoms of hypoglycemia are shaking, sweating, headache, and confusion. When severe, unconsciousness or seizure may occur. Hypoglycemia occurs when a person taking insulin or diabetes pills has a change in the amount of blood sugar available -- due to exercise, decreased food intake, or alcohol. Should you feel symptoms of hypoglycemia again, immediately take some form of sugar such as sweetened juice. As the reaction subsides, eat a complex carbohydrate such as bread. If possible, check your blood sugar using a chemical strip. If episodes are occurring without obvious explanation, contact your physician for further evaluation. Your urine also shows evidence of infection. We will start you on an antibiotic for this. A urine culture is pending. Someone will call you if there is any abnormality with this. Please continue to eat small frequent meals to avoid having another episode of hypoglycemia. Please follow-up with primary care. I have given you contact information for 2 very good primary care providers in the area. Call them in the next 2 to 3 days to schedule a follow-up appointment. Return to the emergency department any new or worsening symptoms. Prescriptions: Cephalexin [Keflex] 500 mg PO BID #14 capsule Referrals: HANNAH MCCLAIN FNP [NO LOCAL MD] - Follow up as needed HUSSEIN HENDRICKSON MD [COMMUNITY BASED STAFF] - Follow up as needed
[2020-10-12 05:50] VITALS: BP 119/77
== END 2020-10-12 05:56 | disposition home or self-care (01) ==
LOC: ER 01:36
DX: E10.649 Type 1 diabetes mellitus with hypoglycemia without coma (principal); N39.0 Urinary tract infection, site not specified; R56.9 Unspecified convulsions; Z79.4 Long term (current) use of insulin
CPT/HCPCS: 36415; 80053; 80307; 81001; 82962; 83735; 84703; 85025; 99283